=== PATIENT | female | born 1965 | race Caucasian/White ===

== ENCOUNTER 2016-08-02 12:00 | Day surgery (SDC) | payer OTHER ==
[~2016-08-02] VITALS: Ht 154.9 cm; Wt 78.0 kg
[~2016-08-02 12:00] MED LIST: 0.9% Sodium Chloride 1,000 ML IV PRN; AZIT500T5 PO; GABA-502 PO; PANT40TA2 PO; PRED50TA PO; Sodium Chloride LOK Flush 10 mL Syringe IV PRN; fentaNYL-PF 50 mCg/mL 2 mL Inj IVPUSH PRN
[2016-08-02 12:59] VITALS: BP 129/91; PULSE 73; RESP 16; O2SAT 96
[2016-08-02] MEDS ORDERED: SCOP1PAT TD (13:08)
[2016-08-02] MEDS ORDERED: Ondansetron 2 mg/mL 2 mL Inj ONE (13:39)
--- NOTE | 2016-08-02 14:35 | PCM.ENDEGD ---
EGD Date of Service: August 02, 2016 Physician David Dodd MD Pre Procedure Diagnosis: Dysphagia Post Procedure Dx & Findings: Rule out eosinophilic esophagitis fundic polyps antral polyp with ulceration Procedure Esophagogastroduodenoscopy PROCEDURE IN DETAIL: After proper sedation, Olympus video endoscope was inserted into patient's mouth and esophagus was successfully intubated. Scope introduced esophagus. Esophagus showed normal shiny whitish mucosa consistent with squamous cell component. However there is definitive treatment visualization of the esophagus noted from the distal esophagus to proximal esophagus. Z line was intact at 35 cm from the incisors. Biopsies obtained at the GE junction and midesophagus to rule out eosinophilic esophagitis. Scope further advanced to the stomach. Stomach showed normal shiny mucosa with normal appearing rugae folds without any ulcer mass erosion. Multiple fundic polyps 5 mm in size or less were noted. Sampling biopsies obtained. In the antrum, there was a 1 cm polyp with ulcerated sedation in the middle. This polyp was removed completely is not severe. Some oozing of blood noted 2 clips deployed and complete hemostasis achieved. Cardia fundus body antrum pylorus were all visualized. Retroflexion was done. Stomach was easily inflated and deflatable using air. Scope further events to the distal duodenum. Duodenum revealed normal villous structures with normal appearing folds without any mass ulcer erosion. Impression Rule out eosinophilic esophagitis Fundic polyp Antral polyp 1 cm with ulcer status post removal Recommendation Await biopsy Presedation Assessment Risks and Benefits Informed consent was obtained from the patient after all risks and benefits including but not limited to drug reaction, infection, pain, bleeding, perforation, as well as alternatives were discussed. Patient monitoring Continuous pulse oximetry, cardiac monitoring, blood pressure monitoring, IV access, and oxygen at 2L per nasal cannula. Periprocedural Fentanyl: Fentanyl 175mcg Incrementally Midazolam: Midazolam 8mg Incrementally Complications There were no periprocedural complications identified. Post Procedure Plan Post Procedure Recommendations 1. Restrict activities today. 2. Resume normal activities in the morning. 3. Resume medications. 4. GERD behavioral modification: - Avoid fatty, acidic, spicy, large meals - Do not lie down after meals - Do not eat or drink anything for at least 2 1/2 hours before going to bed at night - Discontinue tobacco and alcohol - Decrease or avoid caffeine - Avoid chocolate and mints - Decrease weight - Avoid aspirin and non steroidal anti-inflammatory agents (NSAID) such as Aleve, Advil, Mobic, Naproxen, Ibuprofen, etc 5. Add proton pump inhibitor. Take 30 minutes before 1st meal of the day. 6. Patient informed of normal post procedure side effects as bloating, drowsiness, blood streaking in the stool 7. If gastric biopsy reveal H.pylori, continue with appropriate treatment 8. If small bowel biopsy reveals celiac, continue with appropriate treatment 9. Please don't hesitate to call me with any questions David Dodd MD August 02, 2016 14:35
--- NOTE | 2016-08-02 14:36 | PCM.ENDCOL ---
Colonoscopy Date of Service: August 02, 2016 Physician David Dodd MD Pre Procedure Diagnosis: Screening Post Procedure Dx & Findings: Polyp hemorrhoids Procedure Colonoscopy PROCEDURE IN DETAIL: Prep adequate Withdrawal time 11 minutes After unremarkable rectal examination the Olympus video colonoscope was inserted patient's anal canal and was advanced to cecum. Landmarks were identified including the ileocecal valve and appendiceal orifice. Scope was withdrawn systematically. Visualized colonic mucosa showed healthy shiny mucosa with normal healthy-appearing vasculature. In the descending colon there was a 2 mm polyp which was removed completely using cold snare. In the rectum retroflexion was done which showed hemorrhoids. Anal canal was inspected carefully on the way out and hemorrhoids noted. Impression Polyp 1 status post completely removable Hemorrhoids Recommendation Repeat colonoscopy 5 years Presedation Assessment Risks and Benefits Informed consent was obtained from the patient after all risks and benefits including but not limited to drug reaction, infection, pain, bleeding, perforation, as well as alternatives were discussed. Patient monitoring Continuous pulse oximetry, cardiac monitoring, blood pressure monitoring, IV access, and oxygen at 2L per nasal cannula. Complications There were no periprocedural complications identified. Post Procedure Plan Post Procedure Recommendations 1. Restrict activities today. 2. Resume normal activities in the morning. 3. Resume medications. 4. Patient informed of normal post procedure side effects as bloating, drowsiness, blood streaking in the stool. 5. average risk CRCS. If colon polyps come back as: -Hyperplastic- can repeat colonoscopy in 10 years -Tubular adenoma- repeat colonoscopy in 5 years -Tubulovillous/villous adenoma- repeat colonoscopy in 3 years -If any dysplasia- return to clinic as soon as possible 6. Please don't hesitate to call me with any questions. David Dodd MD August 02, 2016 14:36
[2016-08-02 14:58] VITALS: BP 86/65; PULSE 80; RESP 14; O2SAT 100
[2016-08-02 15:01] VITALS: BP 113/70; PULSE 78; RESP 12; O2SAT 97
--- NOTE | 2016-08-04 11:22 | PATH ---
SURGICAL PATHOLOGY Attending Physician:David Dodd M.D. CASE STATUS: Signed Out PATIENT NAME: DAVID DE PID: [id number] : 1965 DATE COLLECTED:08/02/2016 00:00 SPECIMEN: 1: Stomach, Polyp, Biopsy 2: Stomach, Polyp, Biopsy 3: Esophagus, Biopsy 4: Colon, Biopsy CLINICAL HISTORY: 1). ANTRUM POLYP 2). FUNDUS POLYP 3). GE JUNCTION/MID ESOPHAGUS BIOPSY 4). DESCENDING POLYP FINAL DIAGNOSIS: 1.ANTRUM POLYP: FUNDIC GLAND POLYP. 2.FUNDUS POLYP: FUNDIC GLAND POLYP. 3.GE JUNCTION / MID ESOPHAGUS BIOPSY: SQUAMOCOLUMNAR MUCOSA WITH FOCAL INTESTINAL METAPLASIA, CONSISTENT WITH PATEL' S ESOPHAGUS. MILD REFLUX-RELATED CHANGES. NEGATIVE FOR DYSPLASIA AND MALIGNANCY. 4.DESCENDING POLYP: HYPERPLASTIC POLYP. ICD10 CODE K31.7 K22.70 K63.5 GROSS DESCRIPTION: The specimen is received in four formalin filled containers labeled with the patient's name. 1). The specimen is sublabeled "antral polyp" and consists of a 0.5 x 0.5 x 0.4 CM portion of tissue which is entirely submitted in cassette 1A. 2). The specimen is sublabeled "fundal polyps" and consists of 2 portions of tissue which aggregate to 0.3 x 0.3 x 0.2 CM. The specimen is entirely submitted in cassette 2A. 3). The specimen is sublabeled "GEJ/mid esophagus" and consists of 4 tiny portions of tissue which aggregate to 0.3 x 0.3 x 0.2 CM. The specimen is entirely submitted in cassette 3A. 4). The specimen is sublabeled "descending polyp" and consists of a 0.3 x 0.2 x 0.2 CM portion of tissue which is entirely submitted in cassette 4A. 08/03/2016 DAC MICRO DESCRIPTION: See diagnosis. ICD-9 CODES: CPT CODES: 1: 27051 2: 65608 3: 95713 4: 62999 Electronically Signed Out Lovely Davidson MD Located Within [facility], [place] [address] Technical component performed at [facility], [facility] [address], [place], [address]
== END 2016-08-02 23:59 | disposition home or self-care (01) ==
LOC: END 12:00
PROVIDERS: ATTEND Internal Medicine
DX: Z12.11 Encounter for screening for malignant neoplasm of colon (principal); K63.5 Polyp of colon; K64.9 Unspecified hemorrhoids; R13.10 Dysphagia, unspecified; K22.70 Barrett's esophagus without dysplasia; K31.7 Polyp of stomach and duodenum; K21.9 Gastro-esophageal reflux disease without esophagitis; K44.9 Diaphragmatic hernia without obstruction or gangrene
CPT/HCPCS: 43239; 43251; 45385; 99153; G0500; J2250; J3010; J7030

== ENCOUNTER 2016-11-11 13:24 | Observation (INO) | payer OTHER ==
[~2016-11-11] VITALS: Ht 154.9 cm; Wt 77.3 kg
[2016-11-11] VITALS (12 sets, daily range): BP systolic 101–145; BP diastolic 54–95; PULSE 64–98; RESP 8–30; O2SAT 95–100
[~2016-11-11 13:24] MED LIST changes: -0.9% Sodium Chloride 1,000 ML IV PRN; -AZIT500T5 PO; +SCOP1PAT TD; -Sodium Chloride LOK Flush 10 mL Syringe IV PRN; -fentaNYL-PF 50 mCg/mL 2 mL Inj IVPUSH PRN
[2016-11-11] MEDS ORDERED: HYDROmorphone 1 mg/mL Inj ONE ×2 (13:41)
[2016-11-11] MEDS ORDERED: EPHEDrine/NS 5 mg/mL 5 mL Syringe ONE (13:41)
[2016-11-11] MEDS ORDERED: Neostigmine 1 mg/mL 10 mL Inj ONE (13:41)
[2016-11-11] MEDS ORDERED: Ondansetron 2 mg/mL 2 mL Inj ONE (13:41)
[2016-11-11] MEDS ORDERED: Glycopyrrolate 0.2 MG/ML 1mL Inj ONE (13:41)
[2016-11-11] MEDS ORDERED: Rocuronium 10 mg/mL 5 mL Inj ONE (13:41)
[2016-11-11] MEDS ORDERED: Succinylcholine Chloride 20 mg/mL 5 mL Inj ONE (13:41)
[2016-11-11] MEDS ORDERED: fentaNYL-PF 50 mCg/mL 2 mL Inj ONE (13:41)
--- NOTE | 2016-11-11 14:02 | ED.REPORT ---
HPI-Abd Pain F 40 and Over Date of Service Nov 11, 2016 ED Provider: Yang Borjas MD Pt is a 51 year old female with a hx of acid reflux and chronic lower back pain , hiatal hernia presenting to the ED complaining of burning upper back pain radiating into her abdomen onset a week ago. Associated symptoms include nausea. Denies vomiting, numbness, tingling or weakness. She states that this is different than her usual back pain, and it feels like there's a band around her, feels like the pain is more in her abdomen and epigastric area. The pain began in her upper back and then migrated into her abdomen. She had a negative scope done about a month ago. Nursing Notes Stated Complaint: SEVERE PAIN IN BACK AND UPPER ABDOMEN Chief Complaint: Female Abdominal Pain Nursing Notes Reviewed: Yes Allergies: Coded Allergies: NSAIDS (Non-Steroidal Anti-Inflamma (Verified Allergy, Severe, anaphylaxis , 08/01/16) morphine (Verified Allergy, Severe, vomiting, 08/01/16) naproxen sodium (Verified Allergy, Severe, ANAPHYLAXIS, 08/01/16) tolmetin sodium (Verified Allergy, Severe, anaphalaxis, 08/01/16) Scheduled Acetaminophen/Diphenhydramine (Tylenol Pm Ex-Strength Caplet) 500 Mg-25 Mg Tablet 1 EACH PO HS Gabapentin (Gabapentin) 300 Mg Capsule 300 MG PO HS Pantoprazole DR (Protonix) 40 Mg Tablet.dr 40 MG PO DAILY Scheduled PRN Scopolamine (Transderm-Scop) 1 Each Patch.td72 1 EACH TD DAILY PRN PRN For Nausea prior to surgery General Time Seen by MD: 14:01 Chief Complaint Abdominal pain, Other (Back pain) Hx Obtained From: Patient Arrived By: Walk-in Sudden in Onset?: No Onset Occurred: 1 week ago Symptom Duration: Since onset Progression since Onset: Constant Location: : Back: Diffuse Quality: Painful Severity: Current: Moderate Severity: Maximum: Severe Recent Healthcare: No recent doctor visit, No recent hospitalization Past Medical History Past Medical History Notes: CHronic lower back pain, L foot had compartment syndrome 2 years ago, then surgery again 01/07, but still chronic pain since. Bilat SI OA. Past Medical History Acid reflux Past Surgical History denies Smoking History Never Smoker Social History Alcohol Use: Denies alcohol use Drug Use: Denies drug use Ambulatory Status Independent Review of Systems GI: Reports: Abdominal pain, Nausea, Denies: Vomiting Musculoskeletal: Reports: Back pain Complete sys rev & neg: except as marked. Neurologic: Denies: Focal weakness, Numbness, Weakness Physical Exam Vital Signs Vital Signs (First) Date Time Temp Pulse Resp B/P Pulse Ox O2 Delivery O2 Flow Rate FiO2 11/11/16 13:35 36.7 98 30 145/95 100 Room Air Initial VS: Reviewed Head / Eyes: Atraumatic, Normocephalic, PERRL ENT: Mucous membranes moist, Conjunctiva normal, No scleral icterus Extremities: Vascular intact, Neuro intact, No swelling, No tenderness Skin: Warm, Dry, No cyanosis Neurologic: Alert, Oriented, Nonfocal Psychiatric: Mood/affect normal, Behavior normal, Normal thought content General/Constitutional: Awake, Alert, No acute distress, Well appearing Respiratory / Chest: Breath sounds NL, Breath sounds = bilat, No respiratory distress, No rales, No rhonchi, No wheezing, No stridor Cardiovascular: Heart rate NL, Regular rhythm, Heart sounds NL, Peripheral circulation NL Abdomen: Atraumatic, No guarding, No rebound Tenderness/Guarding/Rebound: Positive: Tender diffuse Tenderness most notable in epigastrium Back: No midline vertebral tend, No paraspinal tenderness, No CVA tenderness No flank tenderness, no cervical tenderness Interpretation & Diagnostics Lab Results Interpretation Result Diagram: 11/11/16 1440 11/11/16 1440 Test 11/11/16 14:20 11/11/16 14:40 11/11/16 15:02 Hold Urine Received (Received) White Blood Count 10.7th/mm3 (3.8-10.1) Red Blood Count 4.68mil/mm3 (3.90-5.20) Hemoglobin 14.1g/dL (12.0-15.6) Hematocrit 41.2% (35.0-46.0) Mean Corpuscular Volume 88.0fL (81-100) Mean Corpuscular Hemoglobin 30.1pg (27.0-35.0) Mean Corpuscular Hemoglobin Concent 34.2% (32.0-37.0) Red Cell Distribution Width 13.0% (12.3-15.4) Platelet Count 186bil/L (150-400) Neutrophils (%) (Auto) 77.7% (40-74) Lymphocytes (%) (Auto) 14.9% (14-46) Monocytes (%) (Auto) 5.6% (4-12) Eosinophils (%) (Auto) 1.4% (0-5) Basophils (%) (Auto) 0.2% (0-3) Sodium Level 142mEq/L (134-144) Potassium Level 3.6mEq/L (3.5-5.2) Chloride Level 102mEq/L (97-108) Carbon Dioxide Level 25mmol/L (18-29) Blood Urea Nitrogen 13mg/dL (6-24) Creatinine 0.69mg/dL (0.57-1.00) Estimat Glomerular Filtration Rate 127mL/min (>59) Glucose Level 123mg/dL (60-99) Calcium Level 9.5mg/dL (8.5-10.1) Magnesium Level 1.9mg/dL (1.6-2.6) Total Bilirubin 0.3mg/dL (0.0-1.2) Aspartate Amino Transf (AST/SGOT) 20U/L (0-50) Alanine Aminotransferase (ALT/SGPT) 25U/L (0-32) Alkaline Phosphatase 74U/L (25-150) Total Protein 7.1g/dL (6.4-8.4) Albumin 4.4g/dL (3.4-5.0) Lipase 39U/L (13-60) Hold Newberry Top Tube Received (Received) CT Abd / Pelvis Interpretation IMPRESSION: 1. Enlarged appendix with surrounding inflammation and suspected small appendicolith as above. No evidence of perforation. Findings are most consistent with appendicitis. The findings were discussed with Dr. Yang Borjas on 11/11/16 at 4:01 PM. Dictated by: Kathia Mena M.D. on 11/11/2016 at 15:59 Study type: Abdominal CT IV contrast Interpretation / Wet Read by: Interpret - Radiologist Re-Eval/Medical Decision Med Decision/Clinical Course Pt is a 51 year old female with a hx of acid reflux and chronic lower back pain , hiatal hernia presenting to the ED complaining of burning upper back pain radiating into her abdomen onset a week ago. Associated symptoms include nausea. Denies vomiting, numbness, tingling or weakness. She states that this is different than her usual back pain, and it feels like there's a band around her, feels like the pain is more in her abdomen and epigastric area. The pain began in her upper back and then migrated into her abdomen. She had a negative scope done about a month ago. Here in the emergency department the patient is afebrile with stable vital signs and examination as above. Medications given: GI cocktail, Benadryl, Dilaudid, IV fluids, IV Zosyn Labs: CBC unremarkable CMP unremarkable Lipase within normal limits Urine dip: No signs of infection Differential diagnosis included GERD/gastritis, peptic ulcer disease, pancreatitis, acute appendicitis among others. Presentation not suggestive of primary back pain as cause of her symptoms. She has normal neurologic examination of her upper and lower extremities. Presentation not suggestive of a dural/paraspinal abscess, fracture or other neurologic emergency. CT scan of the abdomen and pelvis was obtained as below: 1. Enlarged appendix with surrounding inflammation and suspected small appendicolith as above. No evidence of perforation. Findings are most consistent with appendicitis. After the above medications the patient reported mild symptom improvement. The patient's presentation is not classically suggestive of acute appendicitis or CAT scan is consistent with acute appendicitis. Patient was discussed with general surgery Dr. The patient was made nothing by mouth and IV Zosyn was administered. Patient was discussed with Dr. Garnica and transferred for surgical intervention and further management. Re-Evaluation/Progress : Time of Eval: 16:03 Patient Status: Condition improved Re-Evaluation/Progress Note: Discussed CT scan and plan for admission. Pt understands and agrees with plan. Consultation : Referral / Consult Name: Samuel Garnica MD Consulted With: Surgeon Call Returned at: 17:00 Sheet Roller Operator: Will see patient, Agrees with plan, Accepts admit Counseled Regarding: Diagnosis, Lab results, Need for admission Discharge & Departure Primary Impression: Appendicitis Appendicitis type: acute appendicitis Acute appendicitis type: other Qualified Code: K35.89 - Other acute appendicitis Additional Impressions: Leukocytosis Leukocytosis type: unspecified Qualified Code: D72.829 - Elevated white blood cell count, unspecified Abdominal pain Abdominal location: unspecified location Qualified Code: R10.9 - Unspecified abdominal pain Disposition: ADMITTED TO HOSPITAL Discharge Condition All VS Reviewed: Yes Condition: Improved Additional Instructions: Thank you for seeking care at the emergency room. It is difficult for us to make definitive diagnoses in the ED but we believe that you are experiencing . Our primary goal today in the ED was to evaluate you for any life-threatening conditions. Your evaluation was reassuring. Continue taking your Pantoprazole. You should follow-up with your primary doctor and gastroenterology in the next week. You should return to the ED immediately if you develop fevers, vomiting, cough, shortness of breath, chest pain, lightheadedness, weakness or any other concerning signs or symptoms. Thank you for letting us partake in your care today. Referrals: Tiffany Jenkins (PCP) Scribe Attestation Portions of this note were transcribed by Crissy Lewis. I, Dr. Borjas personally performed the history, physical exam and medical decision-making; I reviewed and confirmed the accuracy of the information in the transcribed note. Signed by: Hafsa Irving, 11/11/2016. copies to: Tiffany Jenkins Beck O MD Nov 11, 2016 14:02 CRISSY LEWIS Nov 11, 2016 14:29
[2016-11-11] MEDS ORDERED: 0.9% Sodium Chloride 1,000 ML IV ONE (14:29)
[2016-11-11] MEDS ORDERED: LidocaineVisc 2%:Antacid 1:1 10 mL Syringe PO ONE (14:30)
[2016-11-11] MEDS: HYDROmorphone 0.5 mg/0.5 mL iSecure Syringe IVPUSH PRN ×2 (14:51→16:30)
[2016-11-11 14:53] LABS: BASOPHILS % (AUTO) 0.2 % (0-3); EOSINOPHILS % (AUTO) 1.4 % (0-5); MONOCYTES % (AUTO) 5.6 % (4-12); Mean Corpuscular Hemoglobin 30.1 pg (27.0-35.0); NEUTROPHILS % (AUTO) 77.7 % (40-74); Platelet Count 186 bil/L (150-400)
[2016-11-11 15:21] LABS: Magnesium 1.9 mg/dL (1.6-2.6)
[2016-11-11] MEDS ORDERED: Alum-Mag Hydrox-Simeth 30 mL Suspension PO PRN (16:05)
[2016-11-11] MEDS ORDERED: Ondansetron 2 mg/mL 2 mL Inj IVPUSH PRN ×3 (16:05→19:35)
[2016-11-11] MEDS ORDERED: Piperacillin-Tazo 3.375 Gm Inj 3.375 GM in Dextrose 5% Minibag Plus 50 ML IV ONE (16:05)
[2016-11-11] MEDS ORDERED: Lactated Ringer's 1,000 ML IV SCH ×2 (16:05→18:37)
--- NOTE | 2016-11-11 16:05 | DRSVH ---
PROCEDURE: CT ABDOMEN AND PELVIS WITH CONTRAST ([id number]) INDICATIONS: abd pain TECHNIQUE: After the administration of intravenous contrast, 5 mm thick sections acquired from the diaphragm to the symphysis. 5 mm coronal and sagittal reformats were acquired. For radiation dose reduction, the following was used: automated exposure control, adjustment of mA and/or kV according to patient siz e. COMPARISON: None. FINDINGS: Image quality: Excellent. ABDOMEN: Lung bases: Lung bases are clear. Heart size is normal. Solid organs: Liver is enlarged with steatosis. The spleen is normal in size and enhancement. Gallb ladder is unremarkable. Biliary system is non dilated. Pancreas enhances normally. No adrenal nodu les. Kidneys demonstrate normal size and enhancement, without hydronephrosis. Peritoneum and bowel: Bowel loops demonstrate normal wall thickness and caliber. No free fluid or a ir. The appendix is enlarged measuring 10 mm in transverse dimension. There is a 5 mm area of calcif ication noted along the proximal portion. Surrounding periappendiceal inflammation is present. Nodes and vessels: No retroperitoneal or mesenteric adenopathy by size criteria. Aorta and inferior vena cava are normal in size. Miscellaneous: No ventral hernias. PELVIS: Genitourinary: Bladder wall thickness is normal. Miscellaneous: No inguinal hernias or adenopathy. Bones: No suspicious bony lesions. No vertebral body compression fractures. IMPRESSION: 1. Enlarged appendix with surrounding inflammation and suspected small appendicolith as above. No surekha dence of perforation. Findings are most consistent with appendicitis. The findings were discussed with Dr. Yang Borjas on 11/11/16 at 4:01 PM. Dictated by: Kathia Mena M.D. on 11/11/2016 at 15:59 Approved by: Kathia Mena M.D. on 11/11/2016 at 16:03
[2016-11-11] MEDS ORDERED: ACET-2605 PO (16:21)
[2016-11-11] MEDS ORDERED: Ampicillin-Sulbactam Inj 3,000 MG in 0.9% Sodium Chloride 100 ML IV ONE (17:35)
[2016-11-11] MEDS ORDERED: Lactated Ringer's 1,000 ML IV ONE (17:55)
--- NOTE | 2016-11-11 18:13 | HP ---
[address] [address] HISTORY AND PHYSICAL PATIENT: DAVID DE : 1965 MR#: [id number] ADMIT: 11/11/2016 JOB ID: [id number] The patient seen for decision to operate. A 51-year-old female, who has a 6-day history of epigastric pain which is a radiating type, bandlike pain around her upper abdomen. She is nauseated but has not vomited. The pain has increased in severity. It started out mild, but over the course of today, has reached 10. She came to the emergency department. She was evaluated by Dr. Yang Borjas. A CT scan of the abdomen was obtained showing an enlarged inflamed appendix with an appendicolith. There was no evidence of perforation. She has had a laparoscopic-assisted hysterectomy for what sounds like a fibroid. She is a lifelong nonsmoker. She did have a recent pneumonia and was treated with and received prednisone but does not take that on a routine basis. She does have chronic low back pain. PAST MEDICAL HISTORY: Operations: Laparoscopic-assisted vaginal hysterectomy. Left foot compartment syndrome operation. MEDICATIONS AT HOME: 1. Gabapentin 300 mg t.i.d. 2. Pantoprazole 40 mg daily. ALLERGIES: 1. NONSTEROIDAL ANTI-INFLAMMATORY AGENTS. 2. MORPHINE. 3. TOLMETIN. She gets postoperative nausea and vomiting which is helped with a scopolamine patch. HABITS: Tobacco and alcohol: None. SOCIAL HISTORY: . She is accompanied in the emergency department by her , Juve, and daughter. 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 REVIEW OF SYSTEMS: Otherwise negative. PHYSICAL EXAMINATION: Alert, uncomfortable, appearing stated age. BMI 32. Temperature 36.8, brachial blood pressure 121/82, pulse 98, respiratory rate 16, O2 sat on room air 95%. HEENT: PERRLA, EOMI. No scleral icterus. Neck: No masses. Normal range of motion. Lungs: Clear. Cardiac exam: Regular rhythm. I did not appreciate any murmurs or gallops. Abdomen: She has right lower quadrant tenderness and she has referred tenderness from the left lower quadrant to the right lower quadrant. Extremities: No edema. Skin: No anterior abdominal wall rashes. Neurologic exam: Appropriate affect. No obvious cranial nerve deficits. No lateralizing signs. Gait not tested. LABORATORY RESULTS: White count 10,700 with a left shift. Hematocrit is 41.2. Platelet count 186,000. Electrolytes are normal. Creatinine 0.69. Glucose 123. CT scan is personally reviewed by myself as well as the report and impression by Dr. Kathia Mena. IMPRESSION: Appendicitis. She does have a somewhat atypical history, but nevertheless, a CT scan has an approximate 98% sensitivity and specificity for diagnosing appendicitis. I discussed options with the patient. I think because of the progressive worsening of her symptoms and the fact that she probably has a fecalith, I have recommended proceeding with a laparoscopic, possible open appendectomy. I did discuss treating her with antibiotics alone. I discussed potential operative complications including but not limited to, bleeding, infection, and injury to adjacent organs such as the small bowel, colon, and ureter. The patient agrees to proceed, and we will start antibiotics preoperatively.
[2016-11-11] MEDS ORDERED: Bupivacaine-MPF 0.25% 30 mL Inj INFILTRATE ONE (18:17)
[2016-11-11] MEDS ORDERED: Lactated Ringer's 500 ML IV PRN (18:37)
[2016-11-11] MEDS ORDERED: EPHEDrine Sulfate 50 mg/mL Inj IVPUSH PRN (18:40)
[2016-11-11] MEDS ORDERED: HYDROmorphone 1 mg/mL Inj IVPUSH PRN ×2 (18:40→19:40)
[2016-11-11] MEDS ORDERED: Dexamethasone 4 mg/mL Inj IVPUSH PRN (18:40)
[2016-11-11] MEDS ORDERED: Albuterol 2.5 mg/3 mL Inhalation Solution NEB PRN (18:40)
[2016-11-11] MEDS ORDERED: fentaNYL-PF 50 mCg/mL 2 mL Inj IVPUSH PRN (18:40)
[2016-11-11] MEDS ORDERED: Phenylephrine 10,000 mCg/mL Inj IVPUSH PRN (18:40)
--- NOTE | 2016-11-11 19:03 | PCM.HPANE ---
Patient Data Date of Service: Nov 11, 2016 Surgeon Admitting Provider:Samuel Garnica MD Attending Provider:Samuel Garnica MD Primary Care Physician:Tiffany Jenkins Other Provider: Reason for Visit Acute Appendicitis Ht/WT & BMI Height (Feet): 5 Height (Inches): 1 Weight (Kilograms): 77.27 Body Mass Index Allergies Coded Allergies: NSAIDS (Non-Steroidal Anti-Inflamma (Verified Allergy, Severe, anaphylaxis , 08/01/16) morphine (Verified Allergy, Severe, vomiting, 08/01/16) naproxen sodium (Verified Allergy, Severe, ANAPHYLAXIS, 08/01/16) tolmetin sodium (Verified Allergy, Severe, anaphalaxis, 08/01/16) Past Anesthesia History Anesthesia History: Positive for:: Anesthesia Reactions (severe vomiting-uses scopolamine patch prior to procedures/sry), Denies:: Abnormal Airway, Difficult Intubation, Fam Anesthesia Reaction, Fam Malignant Hypertherm, Malignant Hyperthermia Diabetes History Hx Diabetes?: No MRSA MRSA: No Medications Home Meds Incl Beta Francine: No Reported Medications Acetaminophen/Diphenhydramine (Tylenol Pm Ex-Strength Caplet)500 Mg-25 Mg Tablet1 Each PO HS 11/11/16 Scopolamine (Transderm-Scop)1 Each Patch.[id number] Each TD DAILY PRN For Nausea prior to surgery 08/02/[address] (Protonix)40 Mg Tablet.dr40 Mg PO DAILY 30 Days Ref 0 12/26/13 Gabapentin 300 Mg [id number] Mg PO HS 12/26/13 Discontinued Reported Medications Prednisone (PredniSONE)50 Mg [id number] Mg PO DAILY Ref 0 08/01/16 History History of ENT Problems?: Yes HEENT History: Positive for:: Dysphagia (recent EGD) Denies:: Abnormal Airway Cataracts Difficult Intubation Glaucoma Hearing Problem Sinus Problem Denture Type: None Teeth Condition: Within Normal Limits Hx of Heart Problems?: Yes Cardiovascular History: Positive for:: Chest Pain Denies:: AICD Atrial Fibrillation Hypertension Pacemaker Valvular Heart Disease Hx of Respiratory Problem?: Yes Respiratory History: Positive for:: Asthma (with activity) Pneumonia Denies:: COPD Cough Hemoptysis Tuberculosis Use of C-PAP Machine (SNORES) Other Resp Pertinent History: recent diagnosis of mild NAOMIE-no treatment initiated yet Hx Neurologic Problems?: No Neurological History: Denies:: CVA Dementia Hx of GI Problems?: Yes Gastrointestinal History: Positive for:: Gastroesphageal Reflux Heartburn Hiatal Hernia Other History/Comment N/V DOS/Pt Hx of Problems?: Yes Other Pertinent History: female stress incontinance Female Hx: Denies:: Currently Endometriosis Pelvic Inflammatory Problems with Breasts? Skin History: Denies:: History Skin Disorders? Pressure Ulcers Hx Musculoskeletal Problems?: Yes Musculoskeletal History: Positive for:: Musculoskeletal Trauma (RT FOOT RPR, LT FOOT FASCIOTOMY AFTER CALCANEAL FX) Denies:: Joint Replacement Hx of Psycho/Social Problems?: Yes Psycho Social History: Positive for:: Anxiety Hx Depression Hx Surgeries?: Yes (foot x3, hysterectomy, ovarain cyst) Hx Any Other Health Problems?: Yes Other History: Positive for:: Hospitalization Denies:: Cancer Endocrine Disease Thyroid Disease History Blood Transfusions: Positive for:: Accept Blood Products? Denies:: Blood Transfusions Hx Diabetes: No Hx Alcohol Use: NoHx Substance Use: No Smoking Status: Never Smoker Have You Smoked inLast 12 mo: No Stop/Bang Treated for Sleep Apnea?: No Do You Have a CPAP Machine?: No (recent sleep study: dx of mild NAOMIE-no tx initiated yet) S-Snoring: Do You Snore Loudly: Yes T-Tired: feel tired, fatigued: Yes O-Obsered: Observed not breath: Yes P-Blood Pressure: treated: No B- Body Mass Index > 35 kg/m2: No A- Age over 50: Yes N- Neck Large Circumference: No G- Gender Male: No NAOMIE Total Score: 3 NAOMIE Risk Assessment: High Risk, =/>3 Yes Risk Assessment Category Category 1A: Patient has history of documented sleep apnea, and HAS NOT received any narcotic, sedative or anesthesia administration during this stay. Category 1B: Patient has history of documented sleep apnea, and HAS received any narcotic , sedative or anesthesia administration during this stay Category 2: Patient has SUSPECTED Obstructive Sleep Apnea, and HAS received any narcotic , sedative or anesthesia administration during this stay. Category 3: Patient has SUSPECTED Obstructive Sleep Apnea and HAS NOT received narcotic, sedative or anesthesia administration during this stay. Category 4: Outpatient in Procedural Areas with known sleep apnea or who screen positive for High Risk via the STOP/BANG questionnaire. Exam Exam Vital Signs Vital Signs Date Time Temp Pulse Resp B/P Pulse Ox O2 Delivery O2 Flow Rate FiO2 8/18/17 17:40 83 18 106/76 96 Room Air 11/11/16 16:37 36.8 16 121/82 95 Room Air 11/11/16 13:35 36.7 98 30 145/95 100 Room Air General Appearance: Alert, Oriented X3, Cooperative, No Acute Distress HEENT/AIRWAY: MP 2 Lungs: Clear to Auscultation, Normal Air Movement Heart: Exam Unremarkable, Regular Rate/Rhythm, No Murmurs/Rubs/Gallops Meds/Labs/Diagnostics Admission Meds Current Medications Sodium Chloride (Normal Saline) 1,000 ml @ 0 mls/hr Q0M ONCE IV Last administered on 11/11/16 14:51; Start 11/11/16 at 14:29; Stop 11/11/16 at 14:33 ; Status DC Diphenhydramine HCl 25 mg 25 mg ONCE ONCE IVPUSH Last administered on 14:51; Start 11/11/16 at 14:30; Stop 11/11/16 at 14:33; Status DC Ampicillin Sodium/ Sulbactam Sodium/ Sodium Chloride (Unasyn Inj/ Normal Saline ) 100 ml @ 200 mls/hr ONCE ONCE IV Last administered on 11/11/16 18:18; Start 11/11/16 at 17:35; Stop 11/11/16 at 18:04; Status DC Bupivacaine HCl 30 ml 30 ml STK-MED ONCE INFILTRATE Last administered on 18:17; Start 11/11/16 at 18:17; Stop 11/11/16 at 18:34; Status DC Lactated Ringer's (Lr) 1,000 ml @ ud STK-MED ONCE IV Last administered on 11/11 17:55; Start 11/11/16 at 17:55; Stop 11/11/16 at 18:34; Status DC Labs Test 11/11/16 14:20 11/11/16 14:40 11/11/16 15:02 Hold Urine Received (Received) White Blood Count 10.7th/mm3 (3.8-10.1) Red Blood Count 4.68mil/mm3 (3.90-5.20) Hemoglobin 14.1g/dL (12.0-15.6) Hematocrit 41.2% (35.0-46.0) Mean Corpuscular Volume 88.0fL (81-100) Mean Corpuscular Hemoglobin 30.1pg (27.0-35.0) Mean Corpuscular Hemoglobin Concent 34.2% (32.0-37.0) Red Cell Distribution Width 13.0% (12.3-15.4) Platelet Count 186bil/L (150-400) Neutrophils (%) (Auto) 77.7% (40-74) Lymphocytes (%) (Auto) 14.9% (14-46) Monocytes (%) (Auto) 5.6% (4-12) Eosinophils (%) (Auto) 1.4% (0-5) Basophils (%) (Auto) 0.2% (0-3) Sodium Level 142mEq/L (134-144) Potassium Level 3.6mEq/L (3.5-5.2) Chloride Level 102mEq/L (97-108) Carbon Dioxide Level 25mmol/L (18-29) Blood Urea Nitrogen 13mg/dL (6-24) Creatinine 0.69mg/dL (0.57-1.00) Estimat Glomerular Filtration Rate 127mL/min (>59) Glucose Level 123mg/dL (60-99) Calcium Level 9.5mg/dL (8.5-10.1) Magnesium Level 1.9mg/dL (1.6-2.6) Total Bilirubin 0.3mg/dL (0.0-1.2) Aspartate Amino Transf (AST/SGOT) 20U/L (0-50) Alanine Aminotransferase (ALT/SGPT) 25U/L (0-32) Alkaline Phosphatase 74U/L (25-150) Total Protein 7.1g/dL (6.4-8.4) Albumin 4.4g/dL (3.4-5.0) Lipase 39U/L (13-60) Hold Newberry Top Tube Received (Received) Plan Impression Patient chart reviewed, patient interviewed and anesthestic plan with risks, benefits, and alternatives discussed, and informed consent obtained. ASA Physical Status: ASA2 Plus Emergency Anesthetic Plan: GA Bene/Risks/Altern/Consents: Yes HP Complete Prior to Induction: Yes Other RSI with cricoid pressure. Rob Stokes DO Nov 11, 2016 19:03
[2016-11-11] MEDS: Pantoprazole 40 mg ER24 Tablet PO SCH ×2 (19:30→22:04)
[2016-11-11] MEDS ORDERED: Sodium Chloride LOK Flush 10 mL Syringe IVFLUSH PRN (19:35)
[2016-11-11] MEDS ORDERED: MetoCLOpramide 5 mg/mL 2 mL Inj IVPUSH PRN (19:35)
--- NOTE | 2016-11-11 19:56 | OP ---
[address] [address] OPERATIVE REPORT PATIENT: DAVID DE : 1965 MR#: [id number] ADMIT: 11/11/2016 JOB ID: [id number] DATE OF SURGERY: 11/11/2016 PREOPERATIVE DIAGNOSIS(ES): Acute appendicitis. POSTOPERATIVE DIAGNOSIS(ES): Acute retrocecal appendicitis. OPERATION: Laparoscopic appendectomy. SURGEON: Samuel Garnica MD APPLICATION ARCHITECT MANAGER: Jd Stephens PA-C INDICATIONS: A 51-year-old female with a 6-day history of epigastric pain that increased in severity. She presented to the emergency department and ultimately had a CT scan that identified appendicitis, and after discussing options with the patient it was elected to proceed with a laparoscopic appendectomy. FINDINGS: She had acute retrocecal appendicitis. The base of the appendix was normal. DESCRIPTION OF PROCEDURE: At the beginning and end of the operation, the SCOAP checklist was completed. A general endotracheal anesthetic was induced. Using ChloraPrep, she was prepped and draped in the usual fashion. She received preoperative antibiotics and had on pneumatic hose. An incision below her umbilicus was made and with sharp dissection the abdominal cavity was entered, a cannula inserted, and the abdomen insufflated with CO2. She was placed in the Trendelenburg position rotated to the left. Under direct visualization 5 mm ports were placed in the left lower quadrant in the suprapubic region. The terminal ileum was identified and then it could be identified that there was inflammation posterior and lateral to the appendix. The peritoneal reflection of the cecum and proximal ascending colon was opened laterally and then the appendix could be identified. I identified the base of the appendix, which was normal, and a window was created within the mesoappendix, and the base of the appendix was divided with an endoscopic DARIELA with a visceral load. I then dissected the appendix away from the mesoappendix using cautery and taking terminal branches of the appendiceal artery as they entered the appendix. After completing the dissection of the appendix it was placed into a specimen bag. The mesoappendix was inspected, as was the staple line. There was no evidence of bleeding and the staple line was secure. The right lower quadrant and pelvis were irrigated with saline and aspirated. The specimen bag was removed through the umbilical port. There is no obvious contamination. The 5 mm ports were removed without evidence of bleeding. The umbilical fascial incision was closed with a [id number] suture of 0-Vicryl. Skin incisions were closed with subcuticular 4-0 Vicryl and Dermabond. The estimated blood loss was 5 mL. There were no apparent complications. The final sponge, needle, and instrument counts were announced as correct and the patient was returned to the recovery room in stable condition. Critical assistance was provided by PAC. Lashell
[2016-11-11] MEDS: Dextrose 5% Lactated Ringer's 1,000 ML IV SCH (20:27)
[2016-11-11] MEDS: Acetaminophen IV 1,000 MG in IV Premix 1 EACH IV SCH (22:07)
[2016-11-11] MEDS ORDERED: 0.9% Sodium Chloride 100 ML ONE (22:11)
--- NOTE | 2016-11-12 00:14 | NUR ---
Admit to Room 1031 Patient arrived to room 1031 at 2009 via [facility] accompanied by MARTA Raines from PACU. Family members also accompanied patient. On initial assessment, patient was drowsy but able to complete assessment questions. Patient stated pain 4/10 on pain scale. VSS. Pulse oximetry applied and patient sats were 97% on 2l NC. IV acetaminophen administered for pain. Patient had some nausea . Call light within reach. Care continues.
[2016-11-12 00:40] VITALS: BP 107/70; PULSE 82; RESP 18; O2SAT 98
[2016-11-12] MEDS: Dextrose 5% Lactated Ringer's 1,000 ML IV SCH ×2 (04:30→11:31)
[2016-11-12] MEDS: Acetaminophen IV 1,000 MG in IV Premix 1 EACH IV SCH (04:34)
[2016-11-12 04:42] VITALS: BP 121/76; PULSE 98; RESP 18; O2SAT 97
[2016-11-12] MEDS ORDERED: Pantoprazole 40 mg ER24 Tablet PO SCH (06:30)
[2016-11-12 06:59] LABS: Mean Corpuscular Hemoglobin 30.2 pg (27.0-35.0); Mean Corpuscular Volume 88.7 fL (81-100)
[2016-11-12 08:18] VITALS: BP 108/69; PULSE 70; RESP 18; O2SAT 94
[2016-11-12] MEDS ORDERED: Polyethylene Glycol (PEG) 17 Gm Powder PO SCH (08:30)
--- NOTE | 2016-11-12 08:35 | NUR ---
Social Work: Screening/Readiness for Discharge D: EMR reviewed. Pt is a 51 y/o female admitted [facility] - with a readmit risk score of 1 - for acute appendicitis per H&P. Pt's insurance is [employer] and PCP is NAVJOT Hernandez. Per EMR, pt lives at home with her spouse in [place]. Pt's NOK is spouse Juve Rooney [phone]. Pt declined DPOA/advanced directive ppw upon admit. Per EMR, pt does not screen in for full assessment. No SW needs identified at this time, no MD orders received. SW will continue to follow pt for potential discharge needs. A: Pt who is independent at baseline and capable of self-care. P: Pt anticipated to discharge home via POV when medically stable. No SW needs identified at this time, no MD order received. SW will continue to follow pt for needs that may arise prior to discharge. MAYRA Gonzales
[2016-11-12 09:20] VITALS: PULSE 92; RESP 15; O2SAT 96
--- NOTE | 2016-11-12 12:32 | PCM.DISURG ---
Surgical Discharge Instruction Date of Service Nov 12, 2016 Dates of Hospitalization Date of Hospital Admission Nov 11, 2016 at 17:20 Providers Admitting Physician: Samuel Garnica MD Primary Care Physician: Tiffany Jenkins Attending Physician: Samuel Garnica MD Discharge Diagnosis Discharge Diagnosis laparoscopic appendectomy for appendicitis Diet Discharge Diet: No restrictions Activity Discharge Activity-General: No restrictions Dressing and Incisional Care Dressing Care: Keep dressing clean, dry & intact Hygiene: May shower Follow Up Plan Follow Up Plan follow up with [facility] in 2-4 weeks Call your provider for: Fever, Chills, Increasing wound pain Harsh Jacques MD Nov 12, 2016 12:32
[2016-11-12] MEDS ORDERED: OXYC5TAB72 PO (12:33)
--- NOTE | 2016-11-12 13:00 | DIS ---
[address] [address] DISCHARGE SUMMARY PATIENT: DAVID DE : 1965 MR#: [id number] ADMIT: 11/11/2016 JOB ID: [id number] DIS: DISCHARGE DIAGNOSIS: Appendicitis. OPERATIONS AND PROCEDURES: Laparoscopic appendectomy. HOSPITAL COURSE: This is a 50-year-old woman who was admitted with signs and symptoms of acute appendicitis. She underwent a laparoscopic appendectomy by Dr. Garnica on the day of November 11. On the morning of November 12, she is feeling better, complaining of upper abdominal pain referred to the right shoulder consistent with post laparoscopy discomfort. She is afebrile, tolerating liquids. Her white count is down in the normal range. Her hematocrit is stable at 35. Chemistries are unremarkable except for a glucose of 196, which was drawn immediately after drinking some juice according to the patient. Her examination is benign and she will be discharged later today. She does not generally like narcotics and will continue to take Tylenol and/or ibuprofen as an outpatient, resume all of her previous medications, and I will give her a prescription for 10 oxycodone tablets just in case she wants to try that if her incisional pain is excessive at home.
--- NOTE | 2016-11-12 13:46 | NUR ---
Discharge Note Patient discharged, spouse here to transport home. IV catheter x 1 removed. Abdominal incision sites x 3, open to air, no oozing/redness/swelling noted. C/o 4/10 abdominal discomfort, refused narcotics during stay (as well as roxycodone prescription). Discharge instructions/medications discussed & understood, no prescriptions given. All belongings gathered, nothing left behind. Spouse carried out belongings, patient transported out via wheelchair by RN. Patient to make f/u surgical appt in 2-4 weeks.
--- NOTE | 2016-11-12 15:23 | NUR ---
Social Work: Discharge/Multidisciplinary Rounds D: EMR reviewed. Pt is on day 1 of hospitalization. Pt lives at home with her spouse in [place]. Per EMR, pt does not screen in for full assessment. Pt discussed in multidisciplinary rounds - no SW needs identified, no MD orders received. A: Pt who is independent at baseline and capable of self-care. P: Pt discharged home via POV today. No SW needs identified, no MD order received. MAYRA Gonzales
--- NOTE | 2016-11-13 09:32 | PCM.ANEP1 ---
Post Anesthesia PACU Phase 1 Assessment Date of Service: Nov 11, 2016 Anesthetic Administered: GA Level of Alertness: Awake, talking LIMA's with Equal Strength: Yes Pain: Yes Pain Scale Score: 4 Nausea or Vomiting: No CV Function & Hydration Stable: Yes Airway Device: Oxygen Delivery: Room Air Lungs: Clear to Auscultation, Normal Air Movement Dermatome Level: Full Sensation PACU Phase 2 Assessment Complications: No Patient Instructions Provided: N/A Rob Stokes DO Nov 13, 2016 09:32
--- NOTE | 2016-11-14 11:35 | PATH ---
SURGICAL PATHOLOGY Attending Physician:Shyla Del Angel CASE STATUS: Signed Out PATIENT NAME: DAVID DE PID: [id number] : 1965 DATE COLLECTED:11/11/2016 00:00 SPECIMEN: Appendix CLINICAL HISTORY: SEVERE PAIN, APPENDICITIS 1). APPENDIX FINAL DIAGNOSIS: 1.VERMIFORM APPENDIX, EXCISION: ACUTE APPENDICITIS. ICD10 K35.80 GROSS DESCRIPTION: The specimen is received in formalin, labeled with the patient's name, sublabeled as appendix, and consists of an intact appendix (length-8.8 cm, diameter-1.0 cm). The resection margin is received stapled. The serosa is degroot smooth, shiny, focally eroded and partially covered in degroot flaky friable exudate. A perforation is located 7.1 cm from the resection margin and 1.5 cm from the tip. The lumen contains martinez solid soft material. The wall is up to 0.2 cm thick. No nodules, masses or lesions are identified. Ink code: black-resection margin. Section code: (A) appendix, serially sectioned, sales service representative, resection margin enface; (B) tip, bivalved, one half submitted. 11/12/16 JM MICRO DESCRIPTION: See diagnosis. ICD-9 CODES: CPT CODES: 1: 08876 Electronically Signed Out Gonzalo Luna MD, PhD [facility] Pathology [facility] [address], [place] [address] Technical component performed at [facility], [facility] [address], [place], [address]
== END 2016-11-12 13:42 | disposition home or self-care (01) ==
LOC: SED 13:24 → OSC 17:20
PROVIDERS: ADMIT Surgery; ATTEND Surgery
PROC: 0DTJ4ZZ Resection of Appendix, Percutaneous Endoscopic Approach (ICD-10-PCS; principal; 2016-11-11 17:30)
DX: Z90.710 Acquired absence of both cervix and uterus (principal); K35.89 Other acute appendicitis
CPT/HCPCS: 36415; 44970; 74177; 80048; 80053; 83690; 83735; 85025; 85027; 94640; 96361; 96374; 96375; 96376; 99285; G0378; J0131; J0295; J0330; J1170; J1200; J2250; J2405; J2710; J2765; J3010; J7030; J7120; Q9967

== ENCOUNTER 2016-11-21 12:35 | Observation (INO) | payer OTHER ==
[~2016-11-21] VITALS: Ht 154.9 cm; Wt 76.5 kg
[~2016-11-21 12:35] MED LIST changes: +ACET-2605 PO; +OXYC-530 PO; -PRED50TA PO
--- NOTE | 2016-11-21 14:46 | DRSVH ---
PROCEDURE: CT ABDOMEN AND PELVIS WITH CONTRAST ([id number]) INDICATIONS: AB PAIN/STATUS POST APPY TECHNIQUE: After the administration of oral and intravenous contrast, 5 mm thick sections acquired from the diap hragms to the symphysis. 5 mm thick coronal and sagittal reformats were performed. For radiation do se reduction, the following was used: automated exposure control, adjustment of mA and/or kV accordi ng to patient size. COMPARISON: [facility], CT, CT ABD PELVIS W CON, 11/11/2016, 15:52. FINDINGS: Image quality: Diagnostic. ABDOMEN: Lung bases: Lung bases are clear. Heart size is normal. Solid organs: The liver is slightly hypodense when compared to the spleen. No definite liver lesions are evident. No intrahepatic or extrahepatic biliary dilatation is present. The gallbladder is pro minent in size and larger on the current study compared to the previous exam without evidence of surr ounding inflammation. The pancreas, spleen, adrenals, and kidneys are unchanged. Peritoneum and bowel: The stomach, duodenum and remainder of the small bowel loops are nondilated. T he colon is grossly unremarkable. Interval postoperative changes are noted related to and appendecto my. There is moderate inflammation identified within the ileocolic region at the expected location o f the appendix with a probable heterogeneous developing loculated fluid collection that measures up t o 2.6 x 2.4 x 1.6 cm. Additional phlegmonous changes within this region and mild edema is noted. Wi thin the periumbilical region, there is heterogeneous fluid identified, measuring 3.7 x 2.5 x 3.3 cm (image 57, series 2). Additional areas of subcutaneous edema within the anterior abdominal soft tiss ues are present. Nodes and vessels: No retroperitoneal or mesenteric adenopathy. Subcentimeter reactive lymph nodes within the ileocolic region are present. Aorta and inferior vena cava are normal in caliber. Aortic and iliac atherosclerotic changes are noted. Bones: Image osseous structures are unchanged. No acute fractures are evident. PELVIS: Genitourinary: Bladder wall thickness is normal. Miscellaneous: No inguinal hernias or adenopathy. No free fluid or free air is evident. Bones: No suspicious bony lesions. No acute fractures are identified. Image osseous structures of the pelvis are unchanged. IMPRESSION: 1. Interval appendectomy with phlegmonous soft tissue changes within the ileocolic region/right lowe r quadrant with a developing small loculated fluid collection measuring up to 2.6 cm, suspicious for a developing abscess. Hematoma/seroma may also have this appearance and clinical correlation is felice mmended. 2. Moderate amount of fluid within the periumbilical region probably represents postoperative seroma /hematoma. Superimposed infection is felt to be less likely. 3. No bowel obstruction. Note: Findings were discussed with Dr. Jacques at 1443 hours (PST) on 11/21/16. Dictated by: Simone Batista M.D. on 11/21/2016 at 13:32 Approved by: Simone Batista M.D. on 11/21/2016 at 13:44
--- NOTE | 2016-11-21 16:46 | NUR ---
Admit Pt arrived to [place] [address]-1 at 1630 via w/c. Pt ambulates w/o difficulty, though does c/o pain w/ movement. Pt a&ox3 and very pleasant. Pt oriented to room, call light, and will call w/ any needs. Dr Jacques paged about pt arrival, now awaiting orders.
[2016-11-21 16:55] VITALS: BP 118/79; PULSE 102; RESP 20; O2SAT 95
[2016-11-21] MEDS ORDERED: OXYC5CAP4 PO (17:32)
[2016-11-21] MEDS ORDERED: diphenhydrAMINE 25 mg Capsule PO PRN (17:35)
[2016-11-21] MEDS ORDERED: Ondansetron 2 mg/mL 2 mL Inj IVPUSH PRN (17:35)
[2016-11-21] MEDS ORDERED: Pantoprazole 40 mg ER24 Tablet PO SCH ×2 (17:35→21:00)
[2016-11-21 20:34] VITALS: BP 112/74; PULSE 95; RESP 16; O2SAT 95
--- NOTE | 2016-11-21 21:10 | HP ---
[address] [address] HISTORY AND PHYSICAL PATIENT: DAVID DE : 1965 MR#: [id number] ADMIT: 11/21/2016 JOB ID: [id number] DATE OF SERVICE: 11/21/2016 CHIEF COMPLAINT/IDENTIFICATION: A 51-year-old woman with complaints of postop periumbilical pain. HISTORY OF PRESENT ILLNESS: I was asked to see the patient in the CT waiting area. She underwent a laparoscopic appendectomy for nonperforated appendicitis on November 11, just 10 days ago. Operative report describes acute nonperforated appendicitis with her appendectomy performed laparoscopically with a [facility] cannula placed at the umbilical port. I actually saw her on postop day number one, and discharged her. At the time as I recall, she was having more pain than the average appendectomy patient but elected to go home on Tylenol alone due to her history of nausea with other oral narcotics. She contacted Dr. Garnica's office today and she was set up for an outpatient CT scan and a CBC and CMP. I saw her in the waiting area after the CT was obtained but before her lab results were back. She voiced her concern that she had been in constant pain since her surgery and that no one was listening to her. The report from the office she said she called last week while vacationing in [place] and has an appointment tomorrow with Dr. Garnica. On questioning she is also reports having had a fever to 101. She denies any interval relief in her pain, denies other fevers or night sweats. She is having normal bowel movements. She denies nausea and vomiting. She denies drainage from her incision. She has been taking Tylenol [id number], every 4 hours maximum dose, she says, since her surgery. On review of her pathology report, notes that the final diagnosis was acute appendicitis and the gross description describes a perforation though it also describes the specimen consists of an intact appendix. PAST MEDICAL HISTORY: Previous laparoscopic-assisted vaginal hysterectomy, left foot compartment syndrome operation, chronic low back pain. MEDICATIONS: 1. Gabapentin 300 mg t.i.d. 2. Pantoprazole 40 mg p.o. daily. ALLERGIES: 1. NSAIDs lead to some sort of anaphylactic reaction. 2. She notes severe nausea with other oral pain medications, specifically NARCOTICS. SOCIAL HISTORY: She is . She is accompanied by her . FAMILY HISTORY/REVIEW OF SYSTEMS: Otherwise negative. PHYSICAL EXAMINATION: She is initially seen in the CT waiting area in no acute distress though covered by a blanket. She does seem to be a bit it at the end of her ropes emotionally, but physically appears nontoxic. Temperature is recorded at 37:2. Her pulse is 102, blood pressure is 118/79. Sclerae are clear without jaundice. Her neck is supple. Lungs are clear. Heart sounds are regular. Her abdomen is soft. She does have some ecchymosis around the periumbilical incision, but the incision is intact and I cannot express fluid and it is not particularly tender to the touch. It is not warm to the touch. Her abdomen is otherwise benign. Rectal examination is not performed. Extremities are without edema. LABORATORY DATA: Her white count and hematocrit were reportedly normal as an outpatient, though I do not have those records. BUN and creatinine within normal limits. Electrolytes are relatively unremarkable. Her liver function tests were normal. IMAGING: CT of the abdomen I have reviewed the films as well as discussed them with Dr. Batista as well as reviewed the report. I think that both the fluid in the periumbilical region and the phlegmonous soft tissue changes and small loculated fluid collection on the CT scan are all consistent with normal postoperative course. IMPRESSION AND PLAN: A 51-year-old woman with primary complaint of periumbilical pain ten days status post laparoscopic appendectomy with secondary complaints of a temperature to 101 and feeling that no one is listening to her problems. I have recommended admission to the hospital for pain control, and she, after a surprisingly long amount of contemplation, she has agreed to be admitted. Since that discussion, I obtained the lab studies from [facility] as described above. I am not certain what her pain is due to. I suspect this is normal postoperative pain associated with the umbilical wall closure of the [facility] cannula and the baseline setting of someone with some chronic pain problems topped off by the fact that she has not tried to use any narcotics for her pain. I have recommended that we admit her to the hospital, give her a regular diet, that she try to take oxycodone for her pain with premedication for the nausea with Zofran. If this is unable to control her pain, we will give her IV Dilaudid. I think that the fluid around her umbilicus is likely not infected, but if her white blood cell count is still elevated above normal tomorrow morning after her pain is controlled, I will aspirate this, looking for infected fluid. Given the fact that she has been taking [id number] Tylenol for 10 days, I will also check an acetaminophen level and hold off any further acetaminophen pending those results. We will recheck her CBC in the morning.
[2016-11-22 00:35] VITALS: BP 120/74; PULSE 87; RESP 16; O2SAT 95
[2016-11-22 05:22] VITALS: BP 122/76; PULSE 98; RESP 16; O2SAT 94
[2016-11-22 06:32] LABS: BASOPHILS % (AUTO) 0.1 % (0-3); EOSINOPHILS % (AUTO) 0.3 % (0-5); MONOCYTES % (AUTO) 6.2 % (4-12); Mean Corpuscular Volume 88.9 fL (81-100); NEUTROPHILS % (AUTO) 77.3 % (40-74); Platelet Count 258 bil/L (150-400)
[2016-11-22 09:06] VITALS: BP 117/76; PULSE 88; RESP 12; O2SAT 94
[2016-11-22] MEDS: HYDROmorphone 0.5 mg/0.5 mL iSecure Syringe IV PRN ×2 (10:06→11:25)
[2016-11-22] MEDS ORDERED: Amoxicillin-Clav 875-125 mg Tablet PO SCH (12:25)
--- NOTE | 2016-11-22 12:27 | PCM.DISURG ---
Surgical Discharge Instruction Date of Service Nov 22, 2016 Dates of Hospitalization Date of Hospital Admission Nov 21, 2016 at 16:24 Providers Admitting Physician: Harsh Jacques MD Primary Care Physician: Tiffany Jenkins Attending Physician: Harsh Jacques MD Discharge Diagnosis Discharge Diagnosis post op pain, post op infection Diet Discharge Diet: No restrictions Activity Discharge Activity-General: No restrictions Dressing and Incisional Care Dressing Care: Change soiled dressing Hygiene: May shower Additional Instructions Discharge Instructions take augmentin for 10 days. If the fluid reaccumulates by your navel, you will need it drained Follow Up Plan Follow Up Plan follow up this Monday with [facility] Call your provider for: Chills, Increasing wound pain Harsh Jacques MD Nov 22, 2016 12:27
[2016-11-22] MEDS ORDERED: AMOX-366 PO (12:28)
[2016-11-22 14:00] VITALS: BP 113/77; PULSE 88; RESP 16; O2SAT 94
--- NOTE | 2016-11-22 14:28 | PROG NOTE ---
[address] [address] PROGRESS NOTE PATIENT: DAVID DE : 1965 MR#: [id number] ADMIT: 11/21/2016 JOB ID: [id number] DATE: 11/22/2016 SUBJECTIVE: The patient has remained stable overnight, still without any better pain control. Her white count remains mildly elevated at 13. OBJECTIVE: On examination, her abdomen remains unchanged without sign of wound opening or any cellulitis or erythema over the incision. IMPRESSION AND PLAN: I will aspirate the fluid around her umbilicus. If it is infected, I will start her on antibiotics. If it is not infected, we will discharge her home on Tylenol given the fact that her acetaminophen level is less than 15, suggesting that she is either a fast metabolizer or taking less Tylenol than she described. Either way, she will likely go home today.
--- NOTE | 2016-11-22 14:37 | DIS ---
[address] [address] DISCHARGE SUMMARY PATIENT: DAVID DE : 1965 MR#: [id number] ADMIT: 11/21/2016 JOB ID: [id number] DIS: DISCHARGE DIAGNOSES: Pain postoperative periumbilical abscess status post aspiration of abscess. HOSPITAL COURSE: A 51-year-old woman who has had persistent periumbilical pain since her laparoscopic appendectomy [address] scan had shown fluid collection. She was admitted to the hospital for pain control and had this aspirated percutaneously by myself with findings of pus. She will go home today with p.o. Augmentin x7 days. As well, she had been taking a lot of Tylenol and we checked her acetaminophen level and this was less than 15. Incidentally it should be noted that her liver function tests were essentially normal. She will follow up with the [facility] this Monday. If the abscess reaccumulates, it will be drained as an outpatient in the office.
--- NOTE | 2016-11-22 14:41 | PROCED ---
[address] [address] PROCEDURE NOTE PATIENT: DAVID DE : 1965 MR#: [id number] ADMIT: 11/21/2016 JOB ID: [id number] DATE OF SERVICE: 11/22/2016 PREOPERATIVE DIAGNOSIS(ES): Periumbilical fluid collection. POSTOPERATIVE DIAGNOSIS(ES): Periumbilical abscess. PROCEDURE: Aspiration of abscess cavity. SURGEON: Harsh Jacques MD. INDICATIONS: A 51-year-old female, 10 days status post laparoscopic appendectomy with periumbilical pain and fluid collection seen on CT with minimal elevation of her white count. The plan is to aspirate the abscess at the bedside. FINDINGS: The patient did have an abscess with chocolate-colored pus that I was able to aspirate 20 cc out of, essentially drying up the entire cavity. PROCEDURE: Procedure was done at the bedside. The patient received preoperative pain medications. The periumbilical region was prepped and draped in sterile fashion. I performed a surgical time-out. I then numbed up the skin with topical lidocaine and then went through the area of numbness with an 18-gauge needle and was able to aspirate until the cavity was soft and gone. It was rodding machine tender but there was no further fluctuance. Specimen was sent for Gram stain and culture. IMPRESSION AND PLAN: The patient will be discharged on p.o. Augmentin. If the abscess recurs, she will need to have this incised and drained as an outpatient.
[2016-11-22] MEDS ORDERED: Polyethylene Glycol (PEG) 17 Gm Powder PO PRN (14:55)
--- NOTE | 2016-11-22 15:43 | NUR ---
Discharge Patient discharged to private vehicle with to home. All discharge instructions discussed including new prescription antibiotics and follow up appointment on Monday. VSS.
--- NOTE | 2016-11-22 17:44 | NUR ---
Social Work Note: Brief Note/Discharge Data& Assessment: EMR reviewed. Per pt is medically ready to discharge home via POV. PANEL MONITOR met with pt and pt at bedside to discuss discharge planning and assess for any unmet needs. Taya Rooney is a 51 year old female admitted under observation on 11/21/2016 for post op pain after appendectomy. Pt has [employer] insurance coverage and sees NAVJOT Hernandez for primary care. Pt lives with her in [place] with her and is independent with all ADL's and no DME needs. Pt declined DPOA/AD paperwork. Pt to transport pt home today. Pt and pt deny any other needs. No other discharge needs identified. Plan: Per pt is medically ready to discharge home via POV. Pt and pt deny any other needs. No other discharge needs identified. All updated and agreeable to plan. MAYRA Ferrera
== END 2016-11-22 15:37 | disposition home or self-care (01) ==
LOC: SCT 12:35 → MOC 16:24
PROVIDERS: ADMIT Surgery; ATTEND Surgery
DX: G89.18 Other acute postprocedural pain (principal); L02.216 Cutaneous abscess of umbilicus; R50.9 Fever, unspecified
CPT/HCPCS: 10160; 36415; 74177; 85025; 87070; 87075; 87077; 87186; 87205; 96374; 96375; G0378; G0379; G0480; J1170; J1200; J2405; Q9967

== ENCOUNTER 2016-12-02 11:57 | Inpatient (IN) | payer OTHER ==
[~2016-12-02] VITALS: Ht 156.2 cm; Wt 78.2 kg
[~2016-12-02 11:57] MED LIST changes: +AMOX-366 PO; -OXYC-530 PO; +OXYC5CAP4 PO; -SCOP1PAT TD
--- NOTE | 2016-12-02 14:03 | DRSVH ---
PROCEDURE: CT ABDOMEN AND PELVIS WITH CONTRAST ([id number]) INDICATIONS: ABDOMINAL PAIN, POST APPENDECTOMY TECHNIQUE: After the administration of oral and intravenous contrast, 5 mm thick sections acquired from the diap hragms to the symphysis. 5 mm thick coronal and sagittal reformats were performed. For radiation do se reduction, the following was used: automated exposure control, adjustment of mA and/or kV accordi ng to patient size. COMPARISON: [facility], CT, CT ABD PELVIS W CON, 11/11/2016, 15:52. [facility], CT, CT ABD PELVIS W CON, 11/21/2016, 14:12. FINDINGS: Image quality: Excellent. ABDOMEN: Lung bases: Lung bases are clear. Heart size is normal. Solid organs: There is a small hypodensity in the right hepatic lobe measuring up to 6 mm which is t oo small to characterize but likely represents a cyst. The spleen is normal in size. The gallbladde r appears within normal limits without calcified gallstones. Biliary system is non-dilated. Pancrea s enhances normally. No adrenal nodules. Kidneys are normal in size and enhancement, without hydron ephrosis. Peritoneum and bowel: Stomach and small bowel loops are normal in caliber and wall thickness. There are postsurgical changes status post recent appendectomy. There is increased there is a small perip herally enhancing fluid collection in the right paracolic gutter adjacent to the cecum measuring up t o 2.4 x 1.7 cm in transverse dimension by 2.3 cm in craniocaudal dimension a loculated fluid collecti on appears similar to slightly decreased in size compared to the prior study but there is increased a djacent fat stranding and small amount of free fluid. There is also increased segmental wall thicken ing of the adjacent ascending colon. The ascending colon is also again partially adherent to the ant erior abdominal wall. Nodes and vessels: No retroperitoneal or mesenteric adenopathy. Aorta and inferior vena cava are no rmal in caliber. Miscellaneous: No ventral hernias. There is a small subcutaneous right paracentral collection withi n the intra-abdominal wall measuring up to 1.9 x 3.1 cm which is decreased from the prior study. PELVIS: Genitourinary: Bladder wall thickness is normal. Miscellaneous: No inguinal hernias or adenopathy. Bones: No suspicious bony lesions. No vertebral body compression fractures. IMPRESSION: 1. Small peripherally enhancing loculated fluid collection in the right paracolic gutter adjacent to the cecum compatible with a probable small abscess is slightly decreased in size compared to the cherelle or study. However, there are increased adjacent inflammatory changes in the surgical bed along the c ecum with slightly increased free fluid, fat stranding, and segmental colonic wall thickening. 2. Decrease in size of a right paracentral subcutaneous collection along the incision site within th e abdominal wall. Dictated by: Ravi Ramirez M.D. on 12/02/2016 at 13:50 Approved by: Ravi Ramirez M.D. on 12/02/2016 at 14:01
[2016-12-02 15:00] VITALS: BP 126/89; PULSE 83; RESP 16; O2SAT 98
--- NOTE | 2016-12-02 15:19 | PCM.HPSURG ---
Subjective Date of Service: Dec 02, 2016 Referring Provider: Admitting Physician: Yanna oGmez MD Primary Care Physician: Tiffany Jenkins Attending Physician: Yanna Gomez MD Chief Complaint Post operative wound infection History of Present Illness Taya Rooney is a 51 year old female who underwent a laparoscopic appendectomy for uncomplicated appendicitis on 11/11/2016. She discharged on post operative day one. She had persistent abdominal pain that was uncontrolled and presented to the ER for evaluation 10 days post operatively and underwent CT scan which demonstrated a very small right lower quadrant fluid collection and umbilical site seroma both of which were normal post operative changes and did not require drainage. She was admitted for pain control and was subsequently discharged. She was seen in follow up clinic a week later and had increased redness of her umbilical port site wound. This was aspirated and consistent with seroma. The fluid was sent for culture and she was started on Augmentin. She developed hives with this and was transitioned to Bactrim. She return for follow up again a week ago and the wound had not improved, thus she had the wound opened and purulent drainage was expressed. She was instructed to continue Bactrim and pack the wound with nugauze for 7 days. She returned to clinic today for reevaluation and the wound is still purulent and her right lower quadrant pain has still not resolved. Based on her lack of improvement and that her cultures were growing both Strep and E.Coli with different antibiotic sensitivities and the bactrim may not be provided adequate KIM coverage she underwent CT scan. The scan demonstrated a very small 1cm fluid collection in the right lower quadrant. This was reviewed with radiology and felt to be too small to drain and that antibiotics would be sufficient. She is admitted to the surgical service for wound care, IV antibiotics and ID consult to determine appropriate treatment course and type. She reports continued Allergy Allergies: Coded Allergies: NSAIDS (Non-Steroidal Anti-Inflamma (Verified Allergy, Severe, anaphylaxis , 11/21/16) naproxen sodium (Verified Allergy, Severe, ANAPHYLAXIS, 11/21/16) tolmetin sodium (Verified Allergy, Severe, anaphalaxis, 11/21/16) morphine (Verified Adverse Reaction, Severe, vomiting, 12/02/16) Medications Home medications Gabapentin Omeprazole Tylenol PM Past Surgical History Operations: 1. Laparoscopic hysterectomy 2008 2. Laparoscopic appendectomy 2016 3. Three foot surgeries for plantar fasciitis 4. 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 Hx Alcohol Use: No Hx Substance Use: No Hx Tobacco Use: No PMH HEENT History History of ENT Problems?: Yes HEENT History: Positive for:: Dysphagia (recent EGD) Denies:: Abnormal Airway Cataracts Difficult Intubation Hearing Problem Sinus Problem Cardiovascular History History of Heart Problems?: Yes Cardiovascular History: Positive for:: Chest Pain Denies:: AICD Atrial Fibrillation Hypertension Pacemaker Valvular Heart Disease Respiratory History of Respiratory Problem: Yes Respiratory History: Positive for:: Asthma (with activity) Pneumonia Denies:: COPD Cough Hemoptysis Tuberculosis Use of C-PAP Machine (SNORES) Neurological History Hx Neurologic Problems?: No Neurological History: Denies:: CVA Dementia Gastrointestinal History HX of GI Problems?: Yes Gastrointestinal History: Positive for:: Gastroesphageal Reflux Heartburn Hiatal Hernia Denies:: Cirrhosis Diverticulitis Rectal Bleeding Genitourinary History Hx of Gu Problems?: Yes Female/Male History Reproductive History Female: Denies: Currently ? Endometriosis Pelvic Inflammatory DX Problems with Breasts? Skin History Skin History: Denies:: History Skin Disorders? Pressure Ulcers Musculoskeletal History Hx Musculoskeletal Problems?: Yes Musculoskeletal History: Positive for:: Musculoskeletal Trauma (RT FOOT RPR, LT FOOT FASCIOTOMY AFTER CALCANEAL FX) Denies:: Joint Replacement Psycho Social History Hx of Psycho/Social Problems?: Yes Psycho Social History: Positive for:: Anxiety Hx Depression Other History Hx Any Other Health Problems?: Yes Other History: Positive for:: Hospitalization Denies:: Cancer Endocrine Disease Thyroid Disease Diabetes: No Social History Hx Alcohol Use: NoHx Substance Use: No Smoking Status: Never Smoker Review of Systems Constitutional: Reports: Malaise, Denies: Chills, Fever, Other, Sweats, Weakness ENT: Denies: Dental Problems, Dysphagia, Ear Discharge, Ear Pain, Hoarseness, Membranes Dry, Nasal Congestion, Nose Discharge, Nose Pain, Other, Throat Pain, Tinnitus, Ulcers/Sores in Mouth Cardiovascular: Denies: Chest Pain, Edema, Lt Headedness, Orthopnea, Other, Palpitations, Paroxysmal Noc. Dyspnea Respiratory: Denies: Cough, Hemoptysis, Other, Pleuritic Chest Pain, SOB with Exertion, Shortness of Breath, Sputum, Wheezing Gastrointestinal: Reports: Abdominal Pain, Nausea Genitourinary: Denies: Anuria, Change in Frequency, Dysuria, Hematuria, Incontinence, Nocturia, Other, Retention Musculoskeletal: Denies: Back Pain, Deformity, Limitation of Function, Neck Pain, Other, Redness, Shoulder Pain, Swelling Skin: Denies: Bruising, Dry or Flakiness, Jaundice, Lesions, Other, Rash, Scars , Ulcers H&P Surgical Exam Exam General: Alert, Oriented X3, Cooperative, No Acute Distress Lungs: Clear to Auscultation, Normal Air Movement Heart: Regular Rate/Rhythm, Normal S1, No Murmurs/Rubs/Gallops Abdomen: Benign, Soft, Other (Umbilical port site with nugauze in wound and gauze dressing with serosanguinous drainage. Tender to palpation at RLQ and at umbilicus. No rebound or gaurding.) Extremities: Warm Neuro: Grossly Neurologically Intact Catheters: None Lab & Micro Results: Wound culture with strep anginosus and e.coli sensitive to ceftriaxone. Diagnostics: CT 12/02/2016 IMPRESSION: 1. Small peripherally enhancing loculated fluid collection in the right paracolic gutter adjacent to the cecum compatible with a probable small abscess is slightly decreased in size compared to the prior study. However, there are increased adjacent inflammatory changes in the surgical bed along the cecum with slightly increased free fluid, fat stranding, and segmental colonic wall thickening. 2. Decrease in size of a right paracentral subcutaneous collection along the incision site within the abdominal wall. Assessment & Plan Assessment 51 yo F with umbilical port site wound infection with strep anginosus and e.coli failed outpatient antibiotic therapy and wound care admitted for IV antibiotics, wound care and infectious disease consult. Pain Evaluation: Adequate Pain Control Plan: We will admit Taya for initiation of IV ceftriaxone and infectious disease consultation. Wound care will include packing the umbilical wound with nugauze twice daily and a gauze dressing over. Her pain has been well controlled on acetaminophen and we will continue scheduling this for her comfort. She may have a regular diet and we will encourage her to ambulate three times daily. We will continue her home medications including gabapentin, omeprazole and add some benadryl at night for her home tylenol pm substitute. We discussed observing her for improved wound appearance, no fevers and improving pain. We will to await ID's recommendations regarding appropriate IV antibiotic course and regimen as well as timing of transition to oral antibiotic treatment regimen and course to adequately treat the strep anginosus which is likely the primary reason her infection has been resistant. Resuscitation Status: CPR: Attempt Resuscitation Deal,Bernadine Fraser MD Dec 02, 2016 15:19
--- NOTE | 2016-12-02 16:15 | NUR ---
admitted to room 1019 direct admit from Surgeon's office, VSS, little uncomfortable, pt states she cannot tolerate opiates, opiates cause N/V with her consistently, Tylenol was effective. Will be here for IV antibiotics to treat post op infection
[2016-12-02] MEDS: Sodium Chloride LOK Flush 10 mL Syringe IVFLUSH SCH (17:02)
[2016-12-02] MEDS: cefTRIAXone Inj 2,000 MG in Dextrose 5% Minibag Plus 50 ML IV SCH (17:02)
[2016-12-02 20:50] VITALS: BP 108/71; PULSE 82; RESP 16; O2SAT 96
[2016-12-02] MEDS: diphenhydrAMINE 25 mg Capsule PO SCH (21:37)
[2016-12-02] MEDS: Pantoprazole 40 mg ER24 Tablet PO SCH (22:10)
[2016-12-03 00:50] VITALS: BP 114/74; PULSE 80; RESP 16; O2SAT 95
--- NOTE | 2016-12-03 03:00 | NUR ---
Pain Pt. reports pain 5/10. Increases with dressing changes. PO Tylenol given. Will continue to monitor.
[2016-12-03] MEDS: Sodium Chloride LOK Flush 10 mL Syringe IVFLUSH SCH ×3 (04:01→16:30)
[2016-12-03 05:32] VITALS: BP 105/72; PULSE 72; RESP 20; O2SAT 97
--- NOTE | 2016-12-03 05:48 | NUR ---
Dressing change Dressing change yesterday during shift change by day shift RN. Dressing changed again now with nugauze. Pt. tolerated procedure well.
[2016-12-03 08:16] VITALS: BP 112/77; PULSE 75; RESP 18; O2SAT 97
--- NOTE | 2016-12-03 08:39 | PCM.PNSURG ---
Subjective Date of Service: Dec 03, 2016 Date of Service: Dec 03, 2016 Visit Information: Reason for Visit Abscess Appendix/Post Surgery, Infection Date of Admission: Dec 02, 2016 at 14:47 Hospital Day # 2 Subjective: Taya feels about the same this morning. No acute events overnight. Vital signs stable. ID consulted and added on PO flagyl. Gastrointestinal: Good Appetite, No N/V Objective Vital Sign- Last 8 Hours Date Time Temp Pulse Resp B/P Pulse Ox O2 Delivery O2 Flow Rate FiO2 12/03/16 08:16 36.7 75 18 112/77 97 Room Air 12/03/16 05:32 36.8 72 20 105/72 97 Room Air 12/03/16 00:50 36.8 80 16 114/74 95 Room Air Intake and Output- Last 8 Hour 12/03/16 Cumulative From/Thru 07:00 12/02/16 19:27 - 12/03/16 05:29 Intake Total 400 ml Output Total 200 ml Balance 200 ml Intake Oral 400 ml Output Urine Total 200 ml # Bowel Movements 0 General: Alert, Oriented X3, Cooperative, No Acute Distress Lungs: Clear to Auscultation Heart: Regular Rate/Rhythm, Normal S1 Abdomen: Soft, Other (Tender in RLQ. No rebound or guarding. Umbilical site with nugauze packing recently changed and minimal serosanguinous output on gauze. No cellulitis or induration.) Extremities: Warm Neuro: Grossly Neurologically Intact Catheters: None Assessment & Plan Impression 51 yo F with umbilical port site wound infection with strep anginosus and e.coli failed outpatient antibiotic therapy and wound care admitted for IV antibiotics and wound care. Problems: Plan FEN/GI: Regular diet. ID: Continue IV ceftriaxone, PO flagyl. Clinically monitor over weekend. Would continue IV antibiotics until Monday and potentially discharge home on oral antibiotic regimen. Planning for total of 2 week course to adequately treat strep anginosus. Appreciate ID involvement and recommendations. PAIN: Gabapentin qhs, tylenol scheduled. MSK: Ambulate TID. DVT: SCDs when in bed, may discontinue if ambulating at least three times daily. Resuscitation Status: CPR: Attempt Resuscitation Bernadine Mcclain MD Dec 03, 2016 08:39
[2016-12-03] MEDS: cefTRIAXone Inj 2,000 MG in Dextrose 5% Minibag Plus 50 ML IV SCH (15:05)
[2016-12-03 17:04] VITALS: BP 123/78; PULSE 73; RESP 16; O2SAT 98
--- NOTE | 2016-12-03 17:43 | NUR ---
Social Work-screening: Data:EMR Reviewed. Pt is a 51 y/o female who was admitted on 12/02/16 for abscess per H&P. Pt's insurance is [employer] and PCP is Tiffany MORFIN. Pt resides at home with her where she remains independent with ADLS. Pt has been up independent in her room. Pt's family to provide transport home. Per MD,pt likely to discharge on oral abx. No discharge needs identified. SW will continue to follow if needs arise. Assessment:pt who is independent at baseline. Plan:Pt to discharge home when medically stable via POV. No discharge needs identified. SW will continue to follow if needs arise. MAYRA Adan
--- NOTE | 2016-12-03 19:26 | NUR ---
Dressing Change, Pain Dressing changed this shift per orders, some serous drainage noted. Patient continues to have some abdominal pain this shift. Patient states that it is controlled to a tolerable level with ordered pain medications. Care is ongoing.
[2016-12-03 19:32] VITALS: BP 112/75; PULSE 68; RESP 18; O2SAT 95
[2016-12-03] MEDS: diphenhydrAMINE 25 mg Capsule PO SCH (21:48)
[2016-12-03] MEDS: Pantoprazole 40 mg ER24 Tablet PO SCH (21:48)
[2016-12-04] MEDS: Sodium Chloride LOK Flush 10 mL Syringe IVFLUSH SCH ×3 (03:55→16:22)
[2016-12-04 04:49] VITALS: BP 120/81; PULSE 68; RESP 18; O2SAT 97
--- NOTE | 2016-12-04 06:10 | NUR ---
Pain; Dressing Change Pt. reports pain. Increasing during dressing change. PO Tylenol given and effective. Dressing changed now with nugauze. Serosangenous drainage present on old dressing. Will continue to monitor.
--- NOTE | 2016-12-04 10:42 | NUR ---
GI Patient reports diarrhea that continues and looks bloody to her. Dr. Mcclain in room and aware of stool concerns. Talked with the patient about antibiotic side effects, possible order for probiotics, and the benefits of yogurt. Encouraged the patient to be up and ambulating in the hallway.
[2016-12-04 10:49] VITALS: BP 105/80; PULSE 83; RESP 17; O2SAT 98
--- NOTE | 2016-12-04 11:16 | PCM.PNSURG ---
Subjective Date of Service: Dec 04, 2016 Date of Service: Dec 04, 2016 Visit Information: Reason for Visit Abscess Appendix/Post Surgery, Infection Date of Admission: Dec 02, 2016 at 14:47 Hospital Day # 3 Subjective: Taya reports diarrhea and general abdominal discomfort with worsening pain in the RLQ. Wants to try some probiotics. Feeling anxious and discouraged that she isn't feeling a lot better. Umbilical wound looks much improved and drainage is less and clearing up with wound care and antibiotics. Objective Vital Sign- Last 8 Hours Date Time Temp Pulse Resp B/P Pulse Ox O2 Delivery O2 Flow Rate FiO2 12/04/16 10:49 36.6 83 17 105/80 98 Room Air 12/04/16 04:49 36.7 68 18 120/81 97 Room Air Intake and Output- Last 8 Hour 12/04/16 Cumulative From/Thru 07:00 12/02/16 19:27 - 12/04/16 05:17 Intake Total 600 ml 2900 ml Output Total 1100 ml 2650 ml Balance -500 ml 250 ml Intake Oral 600 ml 2900 ml Output Urine Total 1100 ml 2650 ml # Voids 5 # Bowel Movements 0 0 General: Alert, Oriented X3, Cooperative, No Acute Distress Lungs: Clear to Auscultation Heart: Regular Rate/Rhythm Abdomen: Soft, Non-distended, Other (Tender to palpation in the RLQ. Umbilical site with nugauze packing and minimal serosanguinous output on dressing.) Extremities: Warm Neuro: Grossly Neurologically Intact Catheters: None Assessment & Plan Impression 51 yo F with umbilical port site wound infection with strep anginosus and e.coli failed outpatient antibiotic therapy and wound care admitted for IV antibiotics and wound care. Problems: Plan FEN/GI: Regular diet. ID: Continue IV ceftriaxone, PO flagyl. Clinically monitor over weekend. Would continue IV antibiotics until Monday and potentially discharge home on oral antibiotic regimen. If RLQ pain persists, consider repeat imaging to determine if small RLQ abscess could be aspirated or drained. Planning for total of 2 week course to adequately treat strep anginosus. Appreciate ID involvement and recommendations. PAIN: Gabapentin qhs, tylenol scheduled. MSK: Ambulate TID. DVT: SCDs when in bed, may discontinue if ambulating at least three times daily. Resuscitation Status: CPR: Attempt Resuscitation Bernadine Mcclain MD Dec 04, 2016 11:16
[2016-12-04] MEDS: cefTRIAXone Inj 2,000 MG in Dextrose 5% Minibag Plus 50 ML IV SCH (15:50)
[2016-12-04 19:55] VITALS: BP 121/85; PULSE 75; RESP 18; O2SAT 97
[2016-12-04] MEDS: Pantoprazole 40 mg ER24 Tablet PO SCH (21:36)
[2016-12-04] MEDS: diphenhydrAMINE 25 mg Capsule PO SCH (21:36)
[2016-12-05] MEDS: Sodium Chloride LOK Flush 10 mL Syringe IVFLUSH SCH ×3 (00:30→16:32)
--- NOTE | 2016-12-05 05:37 | NUR ---
Dressing change Sanguineous drainage present on old dressing. Packed with Nugauze, 4x4, and hypafix. Patient tolerated well with slight increase in pain. Will continue to monitor.
[2016-12-05 06:21] VITALS: BP 124/80; PULSE 79; RESP 16; O2SAT 98
--- NOTE | 2016-12-05 07:13 | CONS ---
[address] [address] CONSULTATION REPORT PATIENT: DAVID DE : 1965 MR#: [id number] ADMIT: 12/02/2016 JOB ID: [id number] INFECTIOUS DISEASE NEW CONSULTATION: DATE OF SERVICE: 12/02/2016 REQUESTING PHYSICIAN: I thank Dr. Mcclain for this timely consult, and note that Dr. 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 REASON FOR CONSULTATION: Intra-abdominal abscess. HISTORY OF PRESENT ILLNESS: The patient is a relatively healthy, 51-year-old woman who was admitted on November 11 for a laparoscopic appendectomy. The final path showed indeed that she had acute appendicitis and she went home and did relatively well for a few days, but then developed pain, swelling and tenderness around the umbilical insertion site that had been used for laparoscopic appendectomy. She was actually back in the hospital very briefly, November 21 and . At that time, Dr. Jacques used a syringe to aspirate an abscess that formed around the umbilical insertion site. This fluid was sent for culture and grew Strep anginosus and E. coli. The patient was started on Augmentin which was a good choice but she developed a rash and was therefore switched to Bactrim which she continued. She subsequently developed more problems around the umbilical site and went to the Surgical [facility] where additional drainage of the umbilical area was performed. She then did reasonably well up until it about three days ago when she developed some right lower quadrant pain; almost out in the right flank which is new and completely distinct from the umbilical pain she has had. This was associated with some degree of subjective fever, some sweats at night, a feeling of being cold without overt chills and some nausea. There was no associated rigors, drenching sweats, or significant pulmonary complaint, though she has felt weak, tired and just generally exhausted the last few days. There has been no urinary complaint and no diarrhea. PAST MEDICAL HISTORY: 1. Status post laparoscopic vaginal hysterectomy. 2. History of plantar fasciitis, status post surgery on the left foot. 3. Status post appendectomy, November 11, 2016. SOCIAL HISTORY: The patient neither smokes nor drinks. 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 She is and lives in [place]. FAMILY HISTORY: Positive for TB in the patient's mother. The patient herself was tested for TB and has been found to be negative and has never had anything consistent with the disease itself. REVIEW OF SYSTEMS: The patient notes she has had some occasional mild headaches with some sinus fullness and sore throat which she attributes to all the smoke in the air recently. No acute visual change. No trouble swallowing. She has minimal cough which she also attributes to the smoke. No actual shortness of breath, chest pain or difficulty breathing. She has chronic back pain which seems relatively unchanged recently. She has abdominal pain, which was around the umbilicus for a couple of weeks and that area has of course been drained twice. She then suffered the onset of the right lower quadrant pain which brought her back into this readmission. She has had no dysuria, urgency, or frequency. She has had nausea and anorexia with a single episode of vomiting. No diarrhea as mentioned. No swelling of the joints. She has chronic arthralgias due to arthritis apparently but this is not worse lately. No skin rashes noted except for that occurred when she took the Augmentin. No neurologic complaints. PHYSICAL EXAMINATION: Reveals an afebrile woman, temp 36.7, pulse 83, respiratory rate 16, blood pressure 126/89. She is saturating pretty well on room air at 98%. No acute distress at all. She is awake, alert, lucid. Head without trauma. Sinuses nontender. Eyes without conjunctivitis. Oral cavity without thrush or pharyngitis. Neck is supple. Lungs clear. Cardiac tones regular rate and rhythm without murmur. The patient does have some degree of scoliosis. Her back is relatively nontender except for some tenderness in the lumbar region to palpation. No flank tenderness is noted. The abdomen has bowel sounds. There is a packed wound around the umbilicus. I did not remove the dressing. The bowel sounds are normal. There is pinpoint tenderness in the right lower quadrant quite laterally with no overlying erythema or any change. She does not have a Dean catheter. There is no suprapubic fullness. There is no swelling of the joints. No skin rashes noted. No peripheral edema. She is neurologically intact. LABORATORY DATA: The patient's most recent white count was 13,400, on November 22. It has not been repeated this admission. Likewise her creatinine is 0.64 on November 12. I do not see any repeats. The micro from November 22 abscess drainage around the umbilicus showed an E. coli which was fairly susceptible though resistant to cefazolin and ampicillin/sulbactam, otherwise susceptible to many agents including Cipro and ceftriaxone. The Strep anginosus was fairly typical organism and was very sensitive to ampicillin, penicillin and ceftriaxone. IMAGING: From November 21 was reviewed. It shows phlegmatous soft tissue changes within the ileocecal right lower quadrant region with a developing small abscess about 2.5 cm. Also noted is some fluid in the periumbilical region which is the area that was unroofed and cultured at that time. This is in comparison to the CT of the abdomen done just today which showed a small peripherally enhancing fluid collection in the right paracolic gutter adjacent to the cecum, which is a probable small abscess. It notable that this is actually smaller than the one that was seen on the CT scan 10 days prior, but there is increased adjacent inflammatory changes in the surgical bed along the cecum. The subcutaneous fluid collection near the umbilicus is much reduced on today's CT. IMPRESSION: This woman has had a kari time after laparoscopic appendectomy. She originally did well for a few days, then developed a periumbilical fluid collection at the site of the trocar insertion there. This was initially drained with a needle and the culture from that grew Streptococcus anginosus and Escherichia coli. Subsequently it got worse and this required some open drainage with a scalpel in Surgical Clinic. She was started on Augmentin and switch to Bactrim during the course of these events. Finally she has developed right lower quadrant pain and it appears she has been developing a small abscess in that area. I have discussed this with the B[employer] Machine T[employer] Spr[employer], Dr. Mcclain, who states they would prefer to treat this medically with antibiotics rather than with additional drainage or surgery and I concur with this plan. RECOMMENDATIONS: 1. Will continue with ceftriaxone at this point. 2. Add to that some Flagyl for the anaerobes which are likely to be present in this process. 3. I understand the plan is to keep the patient for two or three days and I think that is very reasonable. When she is ready to go, probably on Monday the , we can send her out with either oral antibiotics, and I would favor a combination of clindamycin and Cipro to cover the isolated organisms and avoid beta lactams, or perhaps give her a single dose of oritavancin and then continue Cipro or levofloxacin as a second antibiotic agent. 4. I will review these choices and will make a decision when I see her on Monday. 5. Please do not hesitate to call me if there are additional issues or questions regarding this patient. Thank you very much for this consult.
--- NOTE | 2016-12-05 08:29 | PCM.PNSURG ---
Subjective Date of Service: Dec 05, 2016 Visit Information: Reason for Visit Abscess Appendix/Post Surgery, Infection Surgery/Surgery Date Post-Op Day # Date of Admission: Dec 02, 2016 at 14:47 Hospital Day #4 Subjective: Still complaining of right lower quadrant pain that has not improved much over the weekend with IV antibiotics. Eating solid foods with no nausea or vomiting , bowels are working, ambulating in the hallway without assistance, pain mostly controlled with oral Tylenol. Postop General: Other (as above) Gastrointestinal: Tolerating Oral Feedings, No N/V, Passing Stool Pain Management: PO Postop Activity: Ambulating Independently Objective Vital Sign- Last 8 Hours Date Time Temp Pulse Resp B/P Pulse Ox O2 Delivery O2 Flow Rate FiO2 12/05/16 06:21 36.9 79 16 124/80 98 Room Air Intake and Output- Last 8 Hour 12/05/16 Cumulative From/Thru 07:00 12/02/16 19:27 - 12/05/16 06:21 Intake Total 800 ml 4996 ml Output Total 1050 ml 5150 ml Balance -250 ml -154 ml Intake Oral 800 ml 4936 ml IV Total 60 ml Output Urine Total 1050 ml 5150 ml # Voids 5 # Bowel Movements 0 1 General: Alert, Cooperative, No Acute Distress Lungs: Clear to Auscultation Heart: Regular Rate/Rhythm Abdomen: Soft, Non-tender (subjectively tender in the right lower quadrant), Non-distended SURGICAL WOUND : Wound Location/Description Umbilical wound with no surrounding erythema. Packing was removed. Wound drainage remains soupy, no longer purulent. The wound was probed with a cotton- tipped applicator: fascia is intact, no undrained pockets or tunneling. Neuro: Normal Speech Catheters: None Assessment & Plan Impression Primary diagnoses: Postsurgical umbilical port site wound infection. HD #4, improving on IV antibiotics. Other chronic conditions: 1. Dysphagia 2. Exertional reactive airway disease 3. GERD 4. Hiatal hernia 5. Dyspepsia 6. Anxiety and depression Problems: Plan 1. Anticipate discharge to home on oral Cipro and clindamycin after Dr. Uriarte 's evaluation this morning. 2. Follow-up in the surgical PA clinic next Monday or Monday with a CBC. Pain Management: Tylenol Gabapentin Resuscitation Status: CPR: Attempt Resuscitation copies to: Tiffany Jenkins Fred H PA-C Dec 05, 2016 08:29
[2016-12-05 11:02] LABS: BASOPHILS % (AUTO) 0.3 % (0-3); MONOCYTES % (AUTO) 4.6 % (4-12); Mean Corpuscular Hemoglobin 29.5 pg (27.0-35.0); Mean Corpuscular Volume 88.9 fL (81-100); NEUTROPHILS % (AUTO) 64.4 % (40-74); Platelet Count 303 bil/L (150-400)
[2016-12-05 14:17] VITALS: BP 119/79; PULSE 77; RESP 18; O2SAT 98
[2016-12-05] MEDS: cefTRIAXone Inj 2,000 MG in Dextrose 5% Minibag Plus 50 ML IV SCH (15:02)
[2016-12-05] MEDS ORDERED: 0.9% Sodium Chloride 250 ML ONE (15:07)
--- NOTE | 2016-12-05 16:57 | PROG NOTE ---
[address] [address] PROGRESS NOTE PATIENT: DAVID DE : 1965 MR#: [id number] ADMIT: 12/02/2016 JOB ID: [id number] CORRECTED REPORT: DATE: 12/05/2016 REASON FOR FOLLOWUP: Right sided abdominal abscess as well as periumbilical infection following laparoscopic appendectomy. INTERVAL HISTORY: Recall this is the patient I saw on December 02. She had had appendectomy on November 11 and following that had developed a purulent fluid collection around the umbilical trocar insertion site. This required debridement on two separate occasions and one of these cultures grew Streptococcus anginosus as well as E. coli. More recently, she has developed right lower quadrant pain and a CT scan has shown the development of a small abscess which was not thought amenable to drainage. She has been on appropriate antibiotics over the weekend including ceftriaxone and Flagyl. Though improved, she reports still continued significant pain and concern about the nature of that pain as well as ongoing diarrhea. She has not had lab studies done over the weekend. This morning, the patient is complaining of right lower quadrant pain which is not a whole lot improved from admission. In addition, she is having diarrhea which is frequent. She has no fevers or chills. No significant pulmonary symptoms. PHYSICAL EXAMINATION: Reveals an afebrile woman. Temp 36.9, pulse 79, respiratory rate 16, blood pressure 124/80. She is saturating very well on room air. She is in no gross distress though she does appear a bit anxious perhaps. Oral cavity negative. Lungs clear. Cardiac tones: No new murmur. Abdomen: Still with notable right lower quadrant very lateral pain which is quite focal. There is still a dressing over the umbilicus area, but that area appears like it has been adequately treated and the infection is resolving. No new skin rash. LABORATORIES: Include white count 6100 from today with totally normal diff and platelets. Creatinine today 0.69. In terms of micro, we have a stool C. diff ordered but is not yet done. Recall that our CT of the abdomen done Monday, the , showed a fluid collection which enhanced in the right pericolic gutter compatible with a small abscess. IMPRESSION: 1. This is a patient who is improving but still quite concerned about her right lower quadrant pain as well as her diarrhea. We know from our prior cultures that at least part of this is due to strep anginosus which is potentially a difficult organism to deal with given its capacity to cause abscesses. We also have an Escherichia coli involved. At this point, I think perhaps we should wait and make certain the patient does not have Clostridium difficile and therefore await our C diff stool PCR while we continue with our IV antibiotics. I think within the next day or so the patient could be discharged and reasonable antibiotics here orally would include Cipro and Flagyl but, of course, this would be a horrific choice if she were to actually have underlying C. diff. Other possibilities here could include a short course of IV ertapenem or such similar agent to be given in the MOC or perhaps other oral combinations to include perhaps Bactrim plus an agent with strep anginosus activity such as amoxicillin or Augmentin. 2. Will follow up with this patient once the C. diff results are available, but until then I would continue with our current antibiotics which include ceftriaxone and Flagyl. 3. C diff was negative. Discussed DC antibiotics with surgery. ADDITIONAL INFORMATION: REASON FOR FOLLOW UP: Possible right lower quadrant abscess. NOTE: This is an addendum to a note I wrote this morning. This morning, we were concerned about the possibility of C. diff before we sent the patient home on Cipro and Flagyl, so we checked a C. diff, and it was reported initially as positive. This caused confusion in terms of our discharge antibiotic choices. We were just informed that this had been a lab error and, in fact, the C. diff was negative. In speaking further with the patient, she has had a great many loose stools yesterday and to a lesser extent today. She and her family are actively concerned about C. diff, even though the test is so far negative. We had been contemplating sending the patient home on Cipro and clindamycin, but she is concerned about that and is wondering if that will be adequate for her abscess and her continued right lower quadrant pain. CHANGE IN RECOMMENDATIONS: 1. I would give the patient a 1 g dose of ertapenem which we have ordered emergently this evening. If that is well-tolerated, I would send her home to receive 1 g of IV ertapenem daily in the MOC for the next seven days. 2. The IV antibiotics will then continue through December 13. 3. I plan to see the patient in my office on December 14 in follow up at that time under progress. These findings and recommendations communicated to the surgical team. Addenda added by RADHA 12/06/16 at 9:25am
[2016-12-05] MEDS ORDERED: Ertapenem Inj 1,000 MG in 0.9% Sodium Chloride 50 ML IV SCH (17:22)
--- NOTE | 2016-12-05 17:41 | NUR ---
Social Work-Continued D/C Planning Data: EMR Reviewed. Pt is on day 3 of hospitalization. SW met with pt at bedside to assess for unmet needs. Pt declined any unmet needs at this time. SW continues to follow for IV abx needs at discharge. Pt resides at home with her where she remains independent with ADLS. Pt's family to provide transport home. SW will continue to follow if needs arise. Assessment: pt who is independent at baseline. Plan:Pt to discharge home when medically stable via POV, SW following for IV abx needs at d/c. Sylvia Forbes CUT OFF MACHINE OPERATOR
--- NOTE | 2016-12-05 17:54 | PCM.DISURG ---
Surgical Discharge Instruction Date of Service Dec 05, 2016 Dates of Hospitalization Date of Hospital Admission Dec 02, 2016 at 14:47 Providers Admitting Physician: Yanna Gomez MD Primary Care Physician: Tiffany Jenkins Attending Physician: Yanna Gomez MD Discharge Diagnosis Discharge Diagnosis Primary diagnoses: Postsurgical umbilical port site wound infection. HD #4, improving on IV antibiotics. Other chronic conditions: 1. Dysphagia 2. Exertional reactive airway disease 3. GERD 4. Hiatal hernia 5. Dyspepsia 6. Anxiety and depression Post Operative diagnosis Same Diet Discharge Diet: No restrictions Activity Discharge Activity-General: No restrictions Dressing and Incisional Care Dressing Care: Other (pack umbilical wound with half inch Nu Gauze and cover with a dry dressing daily.) Additional Instructions Discharge Instructions Daily IV ertapenem that has been arranged by Dr. Uriarte Follow Up Plan Follow Up Plan Follow-up with Dr. Uriarte as scheduled this 12/09/2016 Mid-level Provider (F9): Jose Pierson PA-C Follow-up appointment: Date (12/13/2016 with a CBC with differential. Call the office tomorrow [phone] for appointment time.) Call your provider for: Fever, Chills, Increasing abdominal pain (increasing right lower quadrant pain), Nausea, Vomiting Additional Information Additional Information Probiotics and/or yogurt is encouraged Jose Pierson PA-C Dec 05, 2016 17:54
--- NOTE | 2016-12-05 18:01 | PCM.DC.SUR ---
Discharge Summary Date of Service: Dec 05, 2016 Date of Hospital Admission: Dec 02, 2016 at 14:47 Date of Discharge: 12/05/2016 Diagnosis at Time of Discharge Primary diagnoses: Postsurgical umbilical port site wound infection. Other chronic conditions: 1. Dysphagia 2. Exertional reactive airway disease 3. GERD 4. Hiatal hernia 5. Dyspepsia 6. Anxiety and depression Problems: Brief History and Physical: Taya Rooney is a 51 year old female who underwent a laparoscopic appendectomy for uncomplicated appendicitis on 11/11/2016. She discharged on post operative day one. She had persistent abdominal pain that was uncontrolled and presented to the ER for evaluation 10 days post operatively and underwent CT scan which demonstrated a very small right lower quadrant fluid collection and umbilical site seroma both of which were normal post operative changes and did not require drainage. She was admitted for pain control and was subsequently discharged. She was seen in follow up clinic a week later and had increased redness of her umbilical port site wound. This was aspirated and consistent with seroma. The fluid was sent for culture and she was started on Augmentin. She developed hives with this and was transitioned to Bactrim. She return for follow up again a week ago and the wound had not improved, thus she had the wound opened and purulent drainage was expressed. She was instructed to continue Bactrim and pack the wound with nugauze for 7 days. She returned to clinic for reevaluation and the wound was still purulent and her right lower quadrant pain had still not resolved. Based on her lack of improvement and that her cultures were growing both Strep and E.Coli with different antibiotic sensitivities and the Bactrim may not have provided adequate KIM coverage she underwent CT scan. The scan demonstrated a very small 1cm fluid collection in the right lower quadrant. This was reviewed with radiology and felt to be too small to drain and that antibiotics would be sufficient. Consultants: ID Hospital Course: The patient was admitted for IV antibiotics, wound care, and infectious disease consultation. After several days of IV ceftriaxone and oral Flagyl her umbilical wound improved. Right lower quadrant pain was unchanged. The patient developed diarrhea on the third hospital day, and on the fourth hospital day this was sent for C. difficile titer which was eventually reported as negative, diarrhea improved on the fourth hospital day with yogurt. The patient was stable for discharge on her fourth hospital day with the plan to have her receive IV ertapenem daily as arranged by Dr. Uriarte. Pathology: None Disposition: The patient was discharged to home on her fourth hospital day after receiving her first daily dose of IV ertapenem. At the time of discharge right lower quadrant pain was dull and persistent, and her umbilical wound has improved. Follow-up Plan: She will follow-up in the office with Dr. Uriarte on Monday and with me the following Monday. Acetaminophen/Diphenhydramine (Tylenol Pm Ex-Strength Caplet) 500 Mg-25 Mg Tablet 1 EACH PO HS (Reported) Gabapentin (Gabapentin) 300 Mg Capsule 300 MG PO HS (Reported) Pantoprazole DR (Protonix) 40 Mg Tablet.dr 40 MG PO HS (Reported) copies to: Tiffany Jenkins PAC; Raad Uriarte MD, Fred H PA-C Dec 05, 2016 18:01
--- NOTE | 2016-12-05 19:17 | NUR ---
Discharge Patient discharged home. IV DC'd and intact. Dressing CDI. Discharge instructions given with no questions. No RX e-faxed. Patient to follow up with Dr. Uriarte on 12/14/2016 and to call for appointment date and time. Patient also to follow up with Jose Pierson on 12/13/2016 and to call for appointment time. Telephone numbers given for both Dr. Uriarte and Jose Pierson. CBCD needs to be draw on 12/12/2016. Patient to arrive on [facility]OC starting 12/06/2016 at 1600 for a week of IV antibiotics. Telephone number given. Family members gathered all patient belongings. OIL ANALYST escorted patient out via W/C.
== END 2016-12-05 18:50 | disposition home or self-care (01) | DRG 950 ==
LOC: SCT 11:57 → OSC 14:47
PROVIDERS: ADMIT Surgery; ATTEND Surgery
DX: T81.4XXD Infection following a procedure, subsequent encounter (principal); B96.20 Unspecified Escherichia coli [E. coli] as the cause of diseases classified elsewhere; B95.4 Other streptococcus as the cause of diseases classified elsewhere; R10.31 Right lower quadrant pain; R19.7 Diarrhea, unspecified